=== PATIENT | male | born 1945 | race Caucasian/White ===

== ENCOUNTER 2019-02-26 13:43 | Emergency (ER) | payer OTHER ==
[~2019-02-26] VITALS: Ht 166 cm; Wt 77.0 kg
[2019-02-26 14:39] LABS: BASOPHILS % (AUTO) 0 % (0-10); EOSINOPHILS # (AUTO) 0.2 10^3/uL (0.0-0.3); EOSINOPHILS % (AUTO) 2 % (0-10); HEMATOCRIT 43 % (40-54); HEMOGLOBIN 14.6 G/DL (13.3-17.7); LYMPHOCYTES # (AUTO) 1.7 X 10^3 (1.0-4.0); LYMPHOCYTES % (AUTO) 24 % (12-44); MEAN CORPUSCULAR HEMOGLOBIN 32 PG (25-34); MEAN CORPUSCULAR HGB CONC 34 G/DL (32-36); MEAN CORPUSCULAR VOLUME 93 FL (80-99); MEAN PLATELET VOLUME 9.8 FL (7.4-10.4); MONOCYTES # (AUTO) 0.6 X 10^3 (0.0-1.0); MONOCYTES % (AUTO) 9 % (0-12); NEUTROPHILS # (AUTO) 4.4 X 10^3 (1.8-7.8); NEUTROPHILS % (AUTO) 64 % (42-75); PLATELET COUNT 163 10^3/uL (130-400); RED CELL DISTRIBUTION WIDTH 13.2 % (10.0-14.5); WHITE BLOOD COUNT 6.9 10^3/uL (4.3-11.0)
[2019-02-26 14:42] LABS: BILIRUBIN,URINE 1+ (NEGATIVE); CLARITY,URINE CLEAR; COLOR,URINE YELLOW; GLUCOSE, URINE (UA) NEGATIVE (NEGATIVE); KETONES,URINE TRACE (NEGATIVE); LEUKOCYTE ESTERASE ,URINE NEGATIVE (NEGATIVE); NITRITE,URINE NEGATIVE (NEGATIVE); PH,URINE 5.5 (5-9); PROTEIN,URINE 1+ (NEGATIVE); RBC,URINE 0-2 /HPF; UROBILINOGEN,URINE 0.2 MG/DL (NORMAL)
[2019-02-26 14:43] LABS: CALCIUM OXALATE CRYSTALS,UR MODERATE /LPF; HYALINE CASTS, URINE >50 /LPF
[2019-02-26 15:13] LABS: POTASSIUM 3.9 MMOL/L (3.6-5.0)
[2019-02-26 15:14] LABS: ALBUMIN 3.7 GM/DL (3.2-4.5); BILIRUBIN,TOTAL 0.7 MG/DL (0.1-1.0); CALCIUM 9.8 MG/DL (8.5-10.1); CREATININE SERUM 1.41 MG/DL (0.60-1.30); TOTAL PROTEIN 6.5 GM/DL (6.4-8.2)
[2019-02-26] MEDS ORDERED: NS IV 1000 ML 1,000 ML IV SCH (17:00)
--- NOTE | 2019-02-26 17:12 | Diagnostic Imaging Report ---
CLINICAL INDICATION: Patient with episode of confusion and altered mental status x3 hours. No complaints at this time. EXAM: Axial CT scan of the brain performed without IV contrast. Auto Exposure Controls were utilized during the CT exam to meet ALARA standards for radiation dose reduction. COMPARISON: None. FINDINGS: There is no evidence of acute cerebral infarct, intracranial hemorrhage, or gross mass effect. The brain parenchymal volume appears appropriate for patient's age. There are multiple focal and patchy areas of low-attenuation white matter changes involving both cerebral hemispheres and in the periventricular regions which may be related to chronic small vessel ischemic disease and leukoaraiosis. There is normal pimentel-white matter distinction. There is no significant midline shift or herniation. There is no evidence of hydrocephalus. The basal cisterns are unremarkable. The skull, extracranial soft tissue, and orbits are unremarkable. The paranasal sinuses are unremarkable. Temporal bones show no significant abnormality. IMPRESSION: 1: There is no definite CT evidence of interval acute cerebral infarction, intracranial hemorrhage, or mass seen. Given the diffuse low attenuation changes throughout the brain parenchyma which can obscure more subtle findings, if there is clinical concern for acute cerebral infarction, MRI of the brain would better evaluate. 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 Dictated by: Dictated on workstation # [id number]
--- NOTE | 2019-02-26 18:01 | ED General ---
General Chief Complaint: Altered Mental Status Stated Complaint: ALTERED MENTAL STATUS Nursing Triage Note: Patient alert, oriented and ambulatory at arrival. stated that patient was talking gibberish at 1315. stated that this happened twice before. Once in August and another time was a long time ago. stated he was having issues filling out his personal information sheet for registration. Pt was alert, oriented x 4. Pt knew name, , day, year, president and last 4 of social security. Pt stated that he did have weird ear pain that started earlier, but does not hurt currently. BS was 115, IV started and urine collected. Nursing Sepsis Screen: No Definite Risk History of Present Illness Date Seen by Provider: Feb 26, 2019 Time Seen by Provider: 14:45 Initial Comments The patient was a 73-year-old white male brought to the emergency room by his family because of altered mental status. They reported him to be jumpy and confused. On arrival here he seemed to be more lively than that but was still vague about details. There was no history of loss of consciousness or motor skills. The patient's family related that about one year ago he had an episode that was similar with a urinary tract infection. Timing/Duration: 4-6 Hours Associated Systoms: Denies Symptoms Allergies and Home Medications Allergies Coded Allergies: No Known Drug Allergies (Unverified , 02/26/19) Patient Home Medication List Home Medication List Reviewed: Yes Review of Systems Review of Systems Constitutional: see HPI EENTM: no symptoms reported Respiratory: no symptoms reported Cardiovascular: no symptoms reported Gastrointestinal: no symptoms reported Genitourinary: no symptoms reported Musculoskeletal: no symptoms reported Skin: no symptoms reported Psychiatric/Neurological: No Symptoms Reported Hematologic/Lymphatic: No Symptoms Reported Immunological/Allergic: no symptoms reported Past Avdtpdw-Gyvzzi-Jijork Hx Patient Social History Alcohol Use: Denies Use Recreational Drug Use: No Smoking Status: Never a Smoker 2nd Hand Smoke Exposure: No Recent Foreign Travel: No Contact w/Someone Who Travel: No Recent Infectious Disease Expo: No Physical Abuse: No Sexual Abuse: No Mistreated: No Fear: No Physical Exam Vital Signs Vital Signs - First Documented 02/26/19 13:50 Temp 36.4 Pulse 73 Resp 16 B/P (MAP) 128/68 (88) Pulse Ox 96 O2 Delivery Room Air Capillary Refill : Less Than 3 Seconds Height, Weight, BMI Height: '" Weight: lbs. oz. kg; 27.00 BMI Method: General Appearance: No Apparent Distress, Other (he was pleasant but vague about date time and details.) Eyes: Bilateral Eye Normal Inspection HEENT: Normal ENT Inspection Neck: Normal Inspection Respiratory: Chest Non Tender, Lungs Clear, Normal Breath Sounds, No Accessory Muscle Use, No Respiratory Distress Cardiovascular: Regular Rate, Rhythm, No Edema, No Gallop, No JVD, No Murmur, Normal Peripheral Pulses Gastrointestinal: Normal Bowel Sounds, No Organomegaly, No Pulsatile Mass, Non Tender, Soft Back: Normal Inspection, No CVA Tenderness, No Vertebral Tenderness Extremity: Normal Capillary Refill, Normal Inspection, Normal Range of Motion, Non Tender, No Calf Tenderness, No Pedal Edema Neurologic/Psychiatric: Alert, No Motor/Sensory Deficits, Normal 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, 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 Norm as Tested Skin: Normal Color, Warm/Dry Lymphatic: No Adenopathy Progress/Results/Core Measures Suspected Sepsis Recent Fever Within 48 Hours: No Infection Criteria Present: None New/Unexplained Altered Menta: No Sepsis Screen: No Definite Risk SIRS Temperature: Pulse: 73 Respiratory Rate: 16 Laboratory Tests 02/26/19 14:05: White Blood Count 6.9 Blood Pressure 128 /68 Mean: 88 Laboratory Tests 02/26/19 14:05: Creatinine 1.41H, Platelet Count 163, Total Bilirubin 0.7 Results/Orders Lab Results Laboratory Tests Test 02/26/19 13:50 02/26/19 13:54 02/26/19 14:05 Range/Units Urine Color YELLOW Urine Clarity CLEAR Urine pH 5.5 5-9 Urine Specific [place] >1.030 1.016-1.022 Urine Protein 1+ H NEGATIVE Urine Glucose (UA) NEGATIVE NEGATIVE Urine Ketones TRACE H NEGATIVE Urine Nitrite NEGATIVE NEGATIVE Urine Bilirubin 1+ H NEGATIVE Urine Urobilinogen 0.2 NORMAL MG/DL Urine Leukocyte Esterase NEGATIVE NEGATIVE Urine RBC (Auto) TRACE H NEGATIVE Urine RBC 0-2 /HPF Urine WBC NONE /HPF Urine Crystals PRESENT H /LPF Urine Calcium Oxalate Crystals MODERATE H /LPF Urine Bacteria NONE /HPF Urine Casts PRESENT /LPF Urine Hyaline Casts >50 H /LPF Urine Mucus NEGATIVE /LPF Urine Culture Indicated NO Glucometer 115 H 70-110 MG/DL White Blood Count 6.9 4.3-11.0 10^3/uL Red Blood Count 4.59 4.35-5.85 10^6/uL Hemoglobin 14.6 13.3-17.7 G/DL Hematocrit 43 40-54 % Mean Corpuscular Volume 93 80-99 FL Mean Corpuscular Hemoglobin 32 25-34 PG Mean Corpuscular Hemoglobin Concent 34 32-36 G/DL Red Cell Distribution Width 13.2 10.0-14.5 % Platelet Count 163 130-400 10^3/uL Mean Platelet Volume 9.8 7.4-10.4 FL Neutrophils (%) (Auto) 64 42-75 % Lymphocytes (%) (Auto) 24 12-44 % Monocytes (%) (Auto) 9 0-12 % Eosinophils (%) (Auto) 2 0-10 % Basophils (%) (Auto) 0 0-10 % Neutrophils # (Auto) 4.4 1.8-7.8 X 10^3 Lymphocytes # (Auto) 1.7 1.0-4.0 X 10^3 Monocytes # (Auto) 0.6 0.0-1.0 X 10^3 Eosinophils # (Auto) 0.2 0.0-0.3 10^3/uL Basophils # (Auto) 0.0 0.0-0.1 10^3/uL Sodium Level 138 135-145 MMOL/L Potassium Level 3.9 3.6-5.0 MMOL/L Chloride Level 101 98-107 MMOL/L Carbon Dioxide Level 24 21-32 MMOL/L Anion Gap 13 5-14 MMOL/L Blood Urea Nitrogen 18 7-18 MG/DL Creatinine 1.41 H 0.60-1.30 MG/DL Estimat Glomerular Filtration Rate 49 BUN/Creatinine Ratio 13 Glucose Level 118 H 70-105 MG/DL Calcium Level 9.8 8.5-10.1 MG/DL Corrected Calcium 10.0 8.5-10.1 MG/DL Total Bilirubin 0.7 0.1-1.0 MG/DL Aspartate Amino Transf (AST/SGOT) 21 5-34 U/L Alanine Aminotransferase (ALT/SGPT) 21 0-55 U/L Alkaline Phosphatase 81 40-136 U/L Total Protein 6.5 6.4-8.2 GM/DL Albumin 3.7 3.2-4.5 GM/DL My Orders Orders - FRANCISCO MULLEN MD Cbc With Automated Diff (02/26/19 14:09) Comprehensive Metabolic Panel (02/26/19 14:09) Ua Culture If Indicated (02/26/19 14:09) Ct Head Wo (02/26/19 16:54) Ns Iv 1000 Ml (Sodium Chloride 0.9%) (02/26/19 17:00) Vital Signs/I&O 02/26/19 13:50 Temp 36.4 Pulse 73 Resp 16 B/P (MAP) 128/68 (88) Pulse Ox 96 O2 Delivery Room Air Capillary Refill : Less Than 3 Seconds Blood Pressure Mean: 88 Departure Communication (Admissions) The patient appears to be reasonably alert. He wishes to go home. CT scan shows only changes which are nonacute and not unusual for age. Impression Primary Impression: transient altered mental status Disposition: 01 HOME, SELF-CARE Condition: Stable/Unchanged Departure-Patient Inst. Decision time for Depature: 18:23 Referrals: PAUL BOLES MD (PCP/Family) Primary Care Physician Add. Discharge Instructions: All discharge instructions reviewed with patient and/or family. Voiced understanding. Increase your fluid intake. FRANCISCO MULLEN MD Feb 26, 2019 18:01
[2019-02-26 19:31] VITALS: BP 159/84
== END 2019-02-26 19:31 | disposition home or self-care (01) ==
LOC: ER FS 13:45
DX: R40.4 Transient alteration of awareness (principal)
CPT/HCPCS: 36415; 70450; 80053; 81000; 82962; 85025; 96360

== ENCOUNTER → 2020-02-19 | Outpatient (CLI) | payer MEDICARE, OTHER ==
[~2020-02-19] VITALS: Ht 170 cm; Wt 76.0 kg
[~2020-02-19] MED LIST: ALPR0.254 PO; ASPI-1238 PO; ATOR40TA70 PO; CATHETER FLUSH 10 ML SYR IV PRN; CLOP75TA69 PO; FLUT16SP22 NSEACH; ISOS30TA3 PO; LISI-552 PO; LORA10TA7 PO; MTP100TCR PO; OMEP40CA27 PO; RANO500T6 PO; REGADENOSON 0.4 MG/5 ML SYR (LEXISCAN) IV ONE
[2020-02-23 09:18] VITALS: BP 168/70
--- NOTE | 2020-02-23 09:18 | Cardiology Stress Test Report ---
Stress Test Report Type of NM Stress Test: Test Type: LEXISCAN 0.4MG/5ML Date of Procedure/Referring: Date of Procedure: Feb 19, 2020 PCP Bong Orozco MD Admitting Physician Jarrod Valenzuela MD Indications: Precordial pain. Baseline Heart Rate: 61 Baseline Blood Pressure: Blood Pressure Systolic: 168 Blood Pressure Diastolic: 70 Baseline EKG: Baseline EKG: sinus rhythm Summary & Conclusion: Summary: The patient was brought to the stress lab after informed consent was taken. Stress test was performed according to the Lexiscan protocol. 0.4 mg of IV Lexiscan was given. Low-grade exercise was performed. Baseline EKG showed sinus rhythm at 61 bpm and blood pressure 168/90 mmHg. Maximum heart rate of 86 bpm and blood pressure 151/96 mmHg. Patient complained of chest pain which resolved at the end. Multiple PVCs. ST depressions noted in V2/V4. 10.76 mCi of Myoview were given for rest imaging and 29.5 mCi of Myoview given for stress imaging. Transient ischemic dilatation score 1.10, EF 48 percent. Lateral hypokinesis. Fixed moderate size lateral defect with mild thomas-defect reversibility. SSS 13, SRS 13, SDS 0. Conclusion: Pharmacological stress test was positive for ischemia. Mild LV systolic dysfunction. Lateral hypokinesis. Lateral infarct with possible thomas-infarct ischemia. Clinical correlation is recommended. Bong OROZCO MD Feb 23, 2020 09:17
== END ==
LOC: CARD 07:34
PROVIDERS: ATTEND Internal Medicine Interventional Cardiology
DX: I25.9 Chronic ischemic heart disease, unspecified (principal); I51.89 Other ill-defined heart diseases; I25.2 Old myocardial infarction
CPT/HCPCS: 78452; 93017; A9502

== ENCOUNTER 2020-02-20 09:00 | Outpatient (RCR) | payer MEDICARE, OTHER ==
[2020-02-26] MEDS ORDERED: LIDOCAINE 1% INJ 20 ML 20 ML VIAL ONE (06:57)
[2020-02-26] MEDS ORDERED: HEParin (CATH LAB) 2,000 ML IV ONE (06:57)
[2020-02-26] MEDS ORDERED: NS IV 1000 ML 1,000 ML ONE (06:57)
[2020-02-26] MEDS ORDERED: OMEP40CA27 PO (07:47)
[2020-02-26] MEDS ORDERED: RANO500T6 PO (07:47)
[2020-02-26] MEDS ORDERED: ASPI-1238 PO (07:47)
[2020-02-26] MEDS ORDERED: LORA10TA7 PO (07:47)
[2020-02-26] MEDS ORDERED: ATOR40TA70 PO (07:47)
[2020-02-26] MEDS ORDERED: LISI-552 PO (07:47)
[2020-02-26] MEDS ORDERED: ALPR.25T PO (07:47)
[2020-02-26] MEDS ORDERED: ISOS30TA3 PO (07:47)
[2020-02-26] MEDS ORDERED: FLUT16SP22 NSEACH (07:47)
[2020-02-26] MEDS ORDERED: CLOP75TA69 PO (07:47)
[2020-02-26] MEDS ORDERED: MTP100TCR PO (07:47)
== END 2020-05-20 | disposition home or self-care (01) ==
LOC: CARD 09:00
PROVIDERS: ATTEND Internal Medicine Interventional Cardiology
DX: I35.1 Nonrheumatic aortic (valve) insufficiency (principal); I51.7 Cardiomegaly; I25.10 Atherosclerotic heart disease of native coronary artery without angina pectoris; I65.23 Occlusion and stenosis of bilateral carotid arteries
CPT/HCPCS: 93306

== ENCOUNTER 2020-02-26 06:59 | Day surgery (SDC) | payer MEDICARE ==
[2020-02-26] VITALS (12 sets, daily range): BP systolic 115–191; BP diastolic 64–93
[~2020-02-26] VITALS: Ht 170 cm; Wt 73.0 kg
[2020-02-26] MEDS ORDERED: NS IV 1000 ML 1,000 ML IV SCH ×2 (07:15→10:12)
[2020-02-26 07:27] LABS: HEMOGLOBIN 16.1 G/DL (13.3-17.7); MEAN PLATELET VOLUME 9.9 FL (7.4-10.4); WHITE BLOOD COUNT 7.5 10^3/uL (4.3-11.0)
[2020-02-26 07:45] LABS: PROTHROMBIN TIME PATIENT 13.9 SEC (12.2-14.7)
[2020-02-26] MEDS ORDERED: CLOP75TA69 PO (07:47)
[2020-02-26] MEDS ORDERED: ISOS30TA3 PO (07:47)
[2020-02-26] MEDS ORDERED: ALPR0.254 PO (07:47)
[2020-02-26] MEDS ORDERED: OMEP40CA27 PO (07:47)
[2020-02-26] MEDS ORDERED: LORA10TA7 PO (07:47)
[2020-02-26] MEDS ORDERED: LISI-552 PO (07:47)
[2020-02-26] MEDS ORDERED: ASPI-1238 PO (07:47)
[2020-02-26] MEDS ORDERED: FLUT16SP22 NSEACH (07:47)
[2020-02-26] MEDS ORDERED: ATOR40TA70 PO (07:47)
[2020-02-26] MEDS ORDERED: MTP100TCR PO (07:47)
[2020-02-26] MEDS ORDERED: RANO500T6 PO (07:47)
[2020-02-26 07:50] LABS: BILIRUBIN,TOTAL 0.8 MG/DL (0.1-1.0); CALCIUM 9.6 MG/DL (8.5-10.1); CREATININE SERUM 1.3 MG/DL (0.60-1.30); POTASSIUM 3.8 MMOL/L (3.6-5.0); TOTAL PROTEIN 7.1 GM/DL (6.4-8.2)
[2020-02-26] MEDS ORDERED: MIDAZOLAM 5 MG/5 ML (VERSED) VIAL ONE (08:30)
[2020-02-26] MEDS ORDERED: fentaNYL INJECTION 100 MCG/2 ML AMP ONE (08:31)
[2020-02-26] MEDS ORDERED: ADENOSINE 3 MG/1 ML (ADENOSCAN) 30ML VIAL IV ONE (09:26)
[2020-02-26] MEDS ORDERED: HEParin 1000 UNIT/ML (10ML VIAL) FOR BOLUS ONE (09:26)
[2020-02-26] MEDS ORDERED: hydrALAZINE (APESOLINE) 20 MG/ML VIAL ONE (09:55)
--- NOTE | 2020-02-26 10:01 | Cardiac Procedure Note-CS/ASA ---
Pre-Procedure Note Pre-Op Procedure Note H&P Reviewed The H&P was reviewed, patient examined and no changes noted. Date H&P Reviewed: Feb 26, 2020 Time H&P Reviewed: 08:45 Conscious Sedation Pre-Proced Time 08:45 ASA Score 3 For ASA 3 and 4: Consider anesthesia and medical clearance. Also, for patients with a history of failed moderate sedation consider anesthesia. Airway Lungs Heart ASA score ASA 1: a normal healthy patient ASA 2: a patient with a mild systemic disease (mid diabetes, controlled hypertension, obesity ASA 3: a patient with a severe systemic disease that limits activity (angina, COPD, prior Myocardial infarction) ASA 4: a patient with an incapacitating disease that is a constant threat to life (CHF, renal failure) ASA 5: a moribund patient not expected to survive 24 hrs. (ruptured aneurysm) ASA 6: a declared brain- patient whose organs are being harvested. For emergent operations, add the letter E after the classification Mallampati Classification Grade 1 Sedation Plan Analgesia, Amnesia, Plan communicated to team members, Discussed options with patient/fam, Discussed risks with patient/fam The patient is an appropriate candidate to undergo the planned procedure, sedation, and anesthesia. The patient immediately re-assessed prior to indication. Bong BURROUGHS MD Feb 26, 2020 10:01
--- NOTE | 2020-02-26 10:12 | Coronary Angiography Report ---
Coronary Angiography Report DATE OF PROCEDURE: 02/26/20 INDICATION: chest pain, abnormal nuclear stress test, History of CAD/CABG. PREOPERATIVE DIAGNOSIS: chest pain, abnormal nuclear stress test, History of CAD/CABG. POSTOPERATIVE DIAGNOSIS: Moderate CAD. No PCI recommended. HISTORY: 74-year-old gentleman with CAD/CABG, with precordial pain and abnormal nuclear stress test.Therefore, the patient was scheduled for coronary angiography. PROCEDURES PERFORMED: 1.Coronary angiography. 2.Left heart catheterization. 3. ESTES angiography 4. SVG angiography 5. Aortic arch angiogram: Medical necessity: to look for saphenous vein grafts. 6. FFR to proximal LAD. COMPLICATIONS: None. SPECIMENS: None. ESTIMATED BLOOD LOSS: 10 mL ANESTHESIA: Conscious sedation ANTICOAGULATION: IV heparin CONTRAST: 146 mL. FLUOROSCOPY: 8.5 minutes. FLOUROSCOPY DOSE:885 mgy. PROCEDURE DETAILS: The patient is a 74 male and was brought to the mini lab operator after informed consent was taken. All the risks and complications were explained in detail; this included the risk of bleeding, vascular damage, stroke, ID and even . The patient was draped and prepped in the usual sterile fashion. Access was gained in the right femoral artery with a 6 [place] sheath. Coronary angiography and left heart catheterization was performed with JR4 and JL4 catheter. Saphenous vein graft and ESTES angiography was done with the JR4 catheter. Aortic arch angiogram was performed with a pigtail catheter. FINDINGS: 1.Left main: patent. 2.LAD: moderate proximal disease. Stenosis severity 50 percent. Mild diffuse distal disease. Occluded ESTES to the LAD. 3.Left circumflex artery: patent OM1. Small vessel. Likely occluded AV groove artery after takeoff of OM1. 4.RCA: moderate to severe ostial RCA stenosis. Heavily calcified. PDA/PL supplied by a patent jump graft. 5.Left heart catheterization: LV pressure 187/12 mmHg. LVEDP 27 mmHg. Aortic pressure 182/83 mmHg. Normal LV function. No gradient across the aortic valve. 6. ESTES angiography: Occluded ESTES. 7. SVG to RCA: SVG jump graft to the PL and PDA. Patent. 8. Another saphenous vein graft which is occluded. 9. Aortic arch angiogram: Only one patent saphenous vein graft noted. no aneurysm or dissection. Patent proximal segments of the great arteries. Recommendations: FFR to the proximal LAD is recommended. FFR details: We used the same JL4 diagnostic catheter. IV heparin 5000 units. We crossed the lesion with an FFR wire. Baseline FFR 0.93. Adenosine was given at 140 g per KG per minute. Lowest FFR 0.86 which is acceptable therefore PCI was deferred. The wire was taken out and there was no vascular complication on post-angiogram. Minx closure to the RFA. Patient tolerated the procedure well and did not have any complication. The patient left the catheter lab with stable hemodynamics. CONCLUSIONS: moderate CAD. Patent jump SVG to the RPDA and RPL. Occluded ESTES. Another occluded saphenous vein graft. Moderate proximal LAD with acceptable FFR. No PCI is indicated. Continue aggressive secondary prevention. Darshan Orozco MD, FACP, FACC, [facility] Interventional Cardiology Bong OROZCO MD Feb 26, 2020 10:12
--- NOTE | 2020-02-26 10:14 | Discharge Inst-Post CATH ---
Discharge Inst-CATH/EP Problems Reviewed?: Yes Final Diagnosis Moderate CAD Post Cardiac Cath/EP D/C Inst Follow Up/Plan Follow up with Dr Orozco on previously scheduled appointment. <b>CARDIAC CATH/EP PROCEDURE DISCHARGE INSTRUCTIONS</b> ACTIVITY * Go Home directly and rest. * Limit activity of the leg (or wrist if it was used) for 7 days including aerobics, swimming, jogging, bicycling, etc. * Restrict stair-climbing for 7 days if possible, if not, climb up with your non-cath leg, then bring together on the same step. * Avoid lifting, pushing, pulling or excessive movement of the affected extremity for 7 days. * Customary sexual activity may be resumed after 2 days-use caution not to use a position that strains or causes pain to the affected extremity. * No driving for 24 hours. * NO SMOKING. * Avoid straining for bowel movements for 7 days. * Gentle walking on level ground is allowed. * Returning to work will depend on the type of procedure and the results. Your doctor will discuss this with you. CALL YOUR DOCTOR FOR ANY OF THE FOLLOWING: *If bleeding from the puncture site occurs- Apply gentle pressure to site with clean cloth and call your doctor or EMS. * If a knot or lump forms under the skin, increases in size, or causes pain. * If bruising appears to be worsening or moving further down your leg instead of disappearing. * Temperature above 101 F. CARE OF YOUR GROIN INCISION; * Bruising or purple discoloration of the skin near the puncture site is common. * You may shower only, no bathtub bathing for 5 days. Be careful to avoid slipping as your leg may feel stiff. * If a closure device was used on your femoral artery, please see the attached guide regarding care of the device and your leg. * Leave dressing on FOR 24 hours. CARE OF YOUR WRIST INCISION; * Bruising or purple discoloration of the skin near the puncture site is common. * You may shower. * DO NOT submerge wrist. * Leave dressing on FOR 24 hours. Bong OROZCO MD Feb 26, 2020 10:14
[2020-02-26] MEDS ORDERED: PATIENT MAY USE OWN MEDS, ALL PO SCH (10:15)
--- NOTE | 2020-02-26 10:15 | Cardiology Discharge Summary ---
Diagnosis/Chief Complaint Date of Admission 02/26/2020 Date of Discharge 02/26/2020 Admission Diagnosis chest pain, CAD, abnormal nuclear stress test Final/Discharge Diagnosis moderate CAD Chief Complaint/HPI Chief Complaint/HPI 74-year-old gentleman with CAD/CABG. Chest pain, abnormal nuclear stress test. Discharge Summary Procedures moderate CAD. Patent jump SVG to the RPDA and RPL. Occluded ESTES. Another occluded saphenous vein graft. Moderate proximal LAD with acceptable FFR. No PCI is indicated. Discharge Physical Examination normal cardiovascular examination. Hospital Course Was the Problem List Reviewed?: Yes unremarkable. Pending Labs Laboratory Tests 02/26/20 07:21: White Blood Count 7.5, Red Blood Count 4.96, Hemoglobin 16.1, Hematocrit 46, Mean Corpuscular Volume 93, Mean Corpuscular Hemoglobin 33, Mean Corpuscular Hemoglobin Concent 35, Red Cell Distribution Width 14.0, Platelet Count 162, Mean Platelet Volume 9.9, Prothrombin Time 13.9, INR Comment 1.0, Activated Partial Thromboplast Time 34, Sodium Level 139, Potassium Level 3.8, Chloride Level 105, Carbon Dioxide Level 24, Anion Gap 10, Blood Urea Nitrogen 20, Creatinine 1.30, Estimat Glomerular Filtration Rate 54, BUN/Creatinine Ratio 15, Glucose Level 99, Calcium Level 9.6, Corrected Calcium 9.6, Total Bilirubin 0.8, Aspartate Amino Transf (AST/SGOT) 22, Alanine Aminotransferase (ALT/SGPT) 18, Alkaline Phosphatase 73, Total Protein 7.1, Albumin 4.0 Discussion & Recommendations Discussion discussed with the patient and family. Continue current medical therapy. Follow up appt.: follow-up with Dr. Orozco Dicharge Diet: Cardiac Diet Activity as Tolerated: Yes Home Medications Reviewed patient Home Medication Reconciliation performed by pharmacy medication reconciliations actuarial technician and/or nursing. Patients Allergies have been reviewed. Discharge Home Medications: Reviewed and agree with Discharge Medication list on patient's Discharge Instruction sheet Condition at discharge stable. Instructions to patient/family Follow up with Dr Orozco on previously scheduled appointment. Bong OROZCO MD Feb 26, 2020 10:15
== END 2020-02-26 14:55 | disposition home or self-care (01) ==
LOC: CATH 06:59 → SDC 10:10 → CATH 14:55
PROVIDERS: ATTEND Internal Medicine Interventional Cardiology
DX: I25.10 Atherosclerotic heart disease of native coronary artery without angina pectoris (principal); R94.39 Abnormal result of other cardiovascular function study; I65.23 Occlusion and stenosis of bilateral carotid arteries; Z79.82 Long term (current) use of aspirin; Z79.899 Other long term (current) drug therapy; Z86.73 Personal history of transient ischemic attack (TIA), and cerebral infarction without residual deficits
CPT/HCPCS: 36221; 80053; 85027; 85610; 85730; 87081; 93459; 93571; C1760; C1769; C1894; 36415

== ENCOUNTER → 2020-11-01 | Outpatient (CLI) | payer MEDICARE ==
[~2020-11-01] MED LIST changes: +ALPR.25T PO; -ALPR0.254 PO; +HOLD METFORMIN - RECEIVED CONTRAST 20 ML VIAL IV SCH; +IOHEXOL 350 MG/ML 100 ML (OMNIPAQUE 350) VIAL IV ONE; -ISOS30TA3 PO; +ISOS30TA82 PO; -LISI-552 PO; +LISI20TA26 PO; +NS 100 ML (IVPB) BAG IV ONE; -REGADENOSON 0.4 MG/5 ML SYR (LEXISCAN) IV ONE
--- NOTE | 2020-11-01 16:25 | Diagnostic Imaging Report ---
PROCEDURE: CT head with and without contrast. TECHNIQUE: Multiple contiguous axial images were obtained through the brain before and after the administration of intravenous contrast. Auto Exposure Controls were utilized during the CT exam to meet ALARA standards for radiation dose reduction. INDICATION: Syncopal episode three weeks ago. COMPARISON: 02/26/2019. FINDINGS: No large acute territorial ischemia, mass, or hemorrhage. No midline shift or mass effect. No abnormal enhancement. Decreased attenuation is seen in the periventricular and subcortical white matter. The ventricles and cortical sulci are age appropriate. The basilar cisterns are patent and unremarkable. The calvarium is intact. The visualized paranasal sinuses are clear. IMPRESSION: 1. No large acute territorial ischemia, mass, or hemorrhage. No abnormal enhancement. 2. Chronic microvascular disease. Dictated by: Dictated on workstation # [id number]
== END ==
LOC: RAD 15:47
PROVIDERS: ATTEND Physician Assistant
DX: I67.82 Cerebral ischemia (principal); R55 Syncope and collapse; M54.16 Radiculopathy, lumbar region; I25.10 Atherosclerotic heart disease of native coronary artery without angina pectoris; W19.XXXA Unspecified fall, initial encounter
CPT/HCPCS: 70470

== ENCOUNTER → 2021-01-17 | Outpatient (CLI) | payer MEDICARE ==
[~2021-01-17] MED LIST changes: -CATHETER FLUSH 10 ML SYR IV PRN; -HOLD METFORMIN - RECEIVED CONTRAST 20 ML VIAL IV SCH; -IOHEXOL 350 MG/ML 100 ML (OMNIPAQUE 350) VIAL IV ONE; -NS 100 ML (IVPB) BAG IV ONE; -OMEP40CA27 PO; +OMEP40CA6 PO
--- NOTE | 2021-01-17 12:37 | Diagnostic Imaging Report ---
PROCEDURE: MRI lumbar spine. TECHNIQUE: Multiplanar, multisequence MRI of the lumbar spine was performed without contrast. INDICATION: Low back pain and falls. No priors. There is disc obliteration and endplate effusion at the L3-L4 level. The L3-L4 fusion mass shows grade 1 anterolisthesis with respect to L5, the posterior cortices are off about 8 mm. There is slight retrolisthesis of L2 with respect to the L3-L4 fusion mass, this is off a grade 1 about 5 mm. Remaining levels are aligned normally. There is no acute appearing marrow signal pathology aside from some degenerative Modic type I changes across the L2-L3 as well as the T10-T11 endplates. The conus appeared unremarkable at the L1 level. There is dispersal of the nerves of the cauda equina. There is no paravertebral mass, hemorrhage or fluid collection. T12-L1: Mild disc desiccation and stature loss but no substantial stenosis. L1-L2: There is disc desiccation with no focal disc herniation, the canal, foraminal and recess is patent. L2-L3: There is severe spondylosis with Modic type I changes. There is disc bulge and endplate osteophytes. There is mild thickening of ligamenta flava. The findings result in a mild to moderate magnitude of canal stenosis with moderate left and [id number] right foraminal narrowing. L2-L3: This facet arthrosis and endplate osteophytes resulting in mild canal stenosis. There is moderate left and [id number] right bony foraminal stenoses. L4-L5: There is thickened ligamenta flava facet arthrosis, disc bulge and endplate osteophytes the findings result in a very severe degree of central canal stenosis. There is moderate left and severe right neural foraminal narrowing the severe stenosis of the right lateral recess. L5-S1: Bulky hypertrophic facet arthrosis is present with disc desiccation bulge and endplate osteophytes with moderate canal stenosis is moderate to severe right and moderate to severe left foraminal stenosis. IMPRESSION: 1. 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 2. Multifactorial degenerative change results in multiple levels of substantial degrees of spinal canal and neural foraminal and lateral recess stenoses detailed level by level above. Dictated by: Dictated on workstation # [id number]
== END ==
LOC: RAD 10:15
PROVIDERS: ATTEND Physician Assistant
DX: M47.26 Other spondylosis with radiculopathy, lumbar region (principal); M47.817 Spondylosis without myelopathy or radiculopathy, lumbosacral region; M51.16 Intervertebral disc disorders with radiculopathy, lumbar region; M51.27 Other intervertebral disc displacement, lumbosacral region; M51.37 Other intervertebral disc degeneration, lumbosacral region; M51.35 Other intervertebral disc degeneration, thoracolumbar region; M48.061 Spinal stenosis, lumbar region without neurogenic claudication; M48.07 Spinal stenosis, lumbosacral region; M43.16 Spondylolisthesis, lumbar region; M43.26 Fusion of spine, lumbar region; M25.78 Osteophyte, vertebrae
CPT/HCPCS: 72148

== ENCOUNTER 2021-02-06 12:13 | Observation (INO) | payer MEDICARE ==
[~2021-02-06] VITALS: Ht 170 cm; Wt 77.0 kg
--- NOTE | 2021-02-06 12:45 | ED Syncope ---
General Chief Complaint: Dizziness/Syncope Stated Complaint: SYNCOPAL EPISODE Nursing Triage Note: ARRIVED VIA EMS FROM HOME AFTER X2 SYNCOPLE EPISODES. DENIES HITTING HIS HEAD. Source of Information: Patient Exam Limitations: No Limitations History of Present Illness Date Seen by Provider: Feb 06, 2021 Time Seen by Provider: 12:30 Initial Comments Patient is a 75-year-old male who presents to the emergency department today after a syncopal episode at [employer] playing the paper again. Patient states that he was sitting playing and all of a sudden felt lightheaded and his legs quit working. His family member is at the bedside and states that he was unconscious for about a minute. Patient states that he had a little bit of back pain prior to the episode. No chest pain, shortness of breath, nausea, sweating. He had a similar episode several months ago and did not seek medical care afterwards. Patient is Covid vaccinated, no Covid concerns currently. No recent illnesses such as fevers chills cough or congestion. No headache. No GI or complaints. He is status post 5 vessel bypass in 2009 with a subsequent stent in 2012. He is chronically anticoagulated on Eliquis. 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 All other review of systems reviewed and negative except as stated. Location Injury Occurred: [facility] Timing/Prior Episodes: Recent History Symptoms Prior to Episode: Lightheadedness, Other (a little back pain) Precipitating Factors: Sitting Current Symptoms: Back to Normal (no pain) Allergies and Home Medications Allergies Coded Allergies: No Known Drug Allergies (Unverified , 02/26/19) Home Medications ALPRAZolam 0.25 Mg Tablet, 0.25 MG PO TID, (Reported) Aspirin Unknown Strength Tablet.dr, 81 MG PO DAILY, (Reported) Atorvastatin Calcium 40 Mg Tablet, 40 MG PO DAILY, (Reported) Clopidogrel Bisulfate 75 Mg Tablet, 75 MG PO DAILY, (Reported) Fluticasone Propionate 16 Gm [place].susp, 16 GM NSEACH PRN, (Reported) Isosorbide Mononitrate 30 Mg Tab.er.24h, 30 MG PO DAILY, (Reported) Lisinopril 20 Mg Tablet, 20 MG PO DAILY, (Reported) Loratadine 10 Mg Tablet, 10 MG PO DAILY, (Reported) Metoprolol Succinate 100 Mg Tab.er.24h, 100 MG PO DAILY, (Reported) Omeprazole 40 Mg Capsule.dr, 40 MG PO DAILY, (Reported) Ranolazine 500 Mg Tab.er.12h, 500 MG PO BID, (Reported) Patient Home Medication List Home Medication List Reviewed: Yes Review of Systems Constitutional: no symptoms reported, see HPI EENTM: no symptoms reported Respiratory: no symptoms reported Cardiovascular: no symptoms reported Gastrointestinal: no symptoms reported Genitourinary: no symptoms reported Musculoskeletal: no symptoms reported Skin: no symptoms reported Psychiatric/Neurological: No Symptoms Reported All Other Systems Reviewed Negative Unless Noted: Yes Past Axwaspd-Ypqtxt-Eooisk Hx Patient Social History Tobacco Use?: No Substance use?: No Immunizations Up To Date Tetanus Booster (TDap): Unknown Second COVID19 Vaccination Randy: 08/29 - MODERNA Past Medical History CABG, Coronary Stent Respiratory: No Currently Using CPAP: No Currently Using BIPAP: No Coronary Artery Disease Neurological: No Genitourinary: No Gastrointestinal: No Cancer: No Physical Exam Vital Signs Vital Signs - First Documented 02/06/21 12:13 Temp 36.7 Pulse 48 Resp 16 B/P (MAP) 76/54 (61) Pulse Ox 96 O2 Delivery Room Air Capillary Refill : Less Than 3 Seconds Height, Weight, BMI Height: '" Weight: lbs. oz. 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 Norm as Tested Cranial Nerves: Normal Hearing, Normal Speech, PERRL Motor/Sensory: No Motor Deficit, No Sensory Deficit Skin: Normal Color, Warm/Dry Progress/Results/Core Measures Results/Orders Lab Results Laboratory Tests Test 02/06/21 12:20 Range/Units White Blood Count 9.6 4.3-11.0 10^3/uL Red Blood Count 4.28 L 4.30-5.52 10^6/uL Hemoglobin 14.0 13.3-17.7 g/dL Hematocrit 42 40-54 % Mean Corpuscular Volume 97 80-99 fL Mean Corpuscular Hemoglobin 33 25-34 pg Mean Corpuscular Hemoglobin Concent 34 32-36 g/dL Red Cell Distribution Width 14.2 10.0-14.5 % Platelet Count 161 130-400 10^3/uL Mean Platelet Volume 9.8 9.0-12.2 fL Immature Granulocyte % (Auto) 0 % Neutrophils (%) (Auto) 79 H 42-75 % Lymphocytes (%) (Auto) 12 12-44 % Monocytes (%) (Auto) 6 0-12 % Eosinophils (%) (Auto) 2 0-10 % Basophils (%) (Auto) 0 0-10 % Neutrophils # (Auto) 7.6 1.8-7.8 10^3/uL Lymphocytes # (Auto) 1.2 1.0-4.0 10^3/uL Monocytes # (Auto) 0.6 0.0-1.0 10^3/uL Eosinophils # (Auto) 0.2 0.0-0.3 10^3/uL Basophils # (Auto) 0.0 0.0-0.1 10^3/uL Immature Granulocyte # (Auto) 0.0 0.0-0.1 10^3/uL Sodium Level 136 135-145 MMOL/L Potassium Level 4.8 3.6-5.0 MMOL/L Chloride Level 107 98-107 MMOL/L Carbon Dioxide Level 22 21-32 MMOL/L Anion Gap 7 5-14 MMOL/L Blood Urea Nitrogen 20 H 7-18 MG/DL Creatinine 1.89 H 0.60-1.30 MG/DL Estimat Glomerular Filtration Rate 35 BUN/Creatinine Ratio 11 Glucose Level 112 H 70-105 MG/DL Calcium Level 9.6 8.5-10.1 MG/DL Troponin I < 0.028 <0.028 NG/ML My Orders Orders - AZUCENA MOELLER MD Ed Iv/Invasive Line Start (02/06/21 12:40) Cbc With Automated Diff (02/06/21 12:40) Basic Metabolic Panel (02/06/21 12:40) Troponin I (02/06/21 12:40) Chest 1 View, Ap/Pa Only (02/06/21 12:40) Ekg Tracing (02/06/21 12:40) Vital Signs/I&O 02/06/21 12:13 Temp 36.7 Pulse 48 Resp 16 B/P (MAP) 76/54 (61) Pulse Ox 96 O2 Delivery Room Air Blood Pressure Mean: 61 Progress Progress Note : Time: 13:29 Progress Note Patient looks clinically very well, recheck vital signs show a blood pressure of 81/60 heart rate 46-48. Discussed the case with Dr. Hogan and Dr. Kuhn. We will continue fluids. Dr. Kuhn states since in a sinus rhythm we will hold Eliquis as well as metoprolol and lisinopril. Will put patient on cardiac stepdown with fluids. Initial ECG Impression Date: Feb 06, 2021 Initial ECG Impression Time: 12:23 Initial ECG Rate: 50 Initial ECG Rhythm: S.Artur Initial ECG Intervals MO 185 QRS 149 QTc 445 Comment Right bundle branch block Diagnostic Imaging Diagonstic Imaging: Xray Plain Films/CT/US/NM/MRI: chest Comments [facility] [place] NAME: AMBAR MUSA [facility] REC#: [id number] PT STATUS: REG ER : 1945 PHYSICIAN: AZUCENA MOELLER MD ADMIT DATE: 02/06/21/ER Draft Date of Exam:02/06/21 CHEST 1 VIEW, AP/PA ONLY EXAM: Portable erect AP chest at 12:57 PM INDICATION: Syncope COMPARISON: There are no prior studies available for comparison. FINDINGS: The heart size is at the upper limits of normal. There are sternotomy wires and surgical clips evident. The lungs are clear. There is no sign of failure, pneumonia or of pleural effusion. The mediastinum is not widened. The osseous structures are intact. IMPRESSION: There is borderline cardiomegaly and evidence of prior cardiac surgery but there is no sign of an acute cardiopulmonary abnormality. Dictated on workstation # [id number] Dict: 02/06/21 1300 Trans: 02/06/21 1309 [facility] [id number] Interpreted by: ISIDRO WILLETT MD Electronically signed by: Departure Communication (Admissions) Time/Spoke to Admitting Phy: 13:[address] Hogan; ok for cardiac stepdown Time/Spoke to Consulting Phy: 13:25 hold lisinopril, metoprolol and eliquis Impression Primary Impression: Syncope Qualified Codes: R55 - Syncope and collapse Additional Impressions: Bradycardia Hypotension Qualified Codes: I95.2 - Hypotension due to drugs Disposition: ADMITTED INPATIENT Condition: Stable Admissions Decision to Admit Reason: Admit from ER (General) Decision to Admit/Date: Feb 06, 2021 Time/Decision to Admit Time: 13:27 Departure-Patient Inst. Referrals: NEVA PERSAUD MD (PCP/Family) Primary Care Physician AZUCENA MOELLER MD Feb 06, 2021 12:45
[2021-02-06 12:46] LABS: BASOPHILS % (AUTO) 0 % (0-10); EOSINOPHILS # (AUTO) 0.2 10^3/uL (0.0-0.3); EOSINOPHILS % (AUTO) 2 % (0-10); HEMATOCRIT 42 % (40-54); LYMPHOCYTES # (AUTO) 1.2 10^3/uL (1.0-4.0); LYMPHOCYTES % (AUTO) 12 % (12-44); MEAN CORPUSCULAR HEMOGLOBIN 33 pg (25-34); MEAN CORPUSCULAR HGB CONC 34 g/dL (32-36); MEAN CORPUSCULAR VOLUME 97 fL (80-99); MEAN PLATELET VOLUME 9.8 fL (9.0-12.2); MONOCYTES # (AUTO) 0.6 10^3/uL (0.0-1.0); MONOCYTES % (AUTO) 6 % (0-12); NEUTROPHILS # (AUTO) 7.6 10^3/uL (1.8-7.8); NEUTROPHILS % (AUTO) 79 % (42-75); PLATELET COUNT 161 10^3/uL (130-400); WHITE BLOOD COUNT 9.6 10^3/uL (4.3-11.0)
[2021-02-06 12:49] LABS: CHLORIDE 107 MMOL/L (98-107); POTASSIUM 4.8 MMOL/L (3.6-5.0); SODIUM 136 MMOL/L (135-145)
[2021-02-06 12:50] LABS: CALCIUM 9.6 MG/DL (8.5-10.1)
[2021-02-06 12:51] LABS: GLUCOSE 112 MG/DL (70-105)
[2021-02-06 12:52] LABS: CARBON DIOXIDE 22 MMOL/L (21-32)
[2021-02-06 12:55] LABS: CREATININE SERUM 1.89 MG/DL (0.60-1.30); GFR ESTIMATED 35
[2021-02-06 12:56] LABS: BUN/CREATININE RATIO 11
--- NOTE | 2021-02-06 13:09 | Diagnostic Imaging Report ---
EXAM: Portable erect AP chest at 12:57 PM INDICATION: Syncope COMPARISON: There are no prior studies available for comparison. FINDINGS: The heart size is at the upper limits of normal. There are sternotomy wires and surgical clips evident. The lungs are clear. There is no sign of failure, pneumonia or of pleural effusion. The mediastinum is not widened. The osseous structures are intact. IMPRESSION: There is borderline cardiomegaly and evidence of prior cardiac surgery but there is no sign of an acute cardiopulmonary abnormality. Dictated by: Dictated on workstation # [id number]
[2021-02-06] MEDS ORDERED: NS IV 500 ML 500 ML IV SCH (13:45)
[2021-02-06] MEDS ORDERED: CATHETER FLUSH 10 ML SYR IV PRN (14:30)
[2021-02-06] MEDS: NS IV 1000 ML 1,000 ML IV SCH ×3 (14:48→23:22)
[2021-02-06] MEDS ORDERED: APIX5TAB PO (14:50)
[2021-02-06] MEDS ORDERED: METO50TA7 PO (14:52)
[2021-02-06] MEDS ORDERED: DILT120C85 PO (14:53)
[2021-02-06] MEDS ORDERED: FISH1CAP15 PO (14:54)
[2021-02-06] MEDS ORDERED: GLUC1CAP37 PO (14:57)
[2021-02-06] MEDS ORDERED: DOCU50LI11 PO (14:57)
[2021-02-06] MEDS ORDERED: VITA200C60 PO (14:57)
[2021-02-06] MEDS ORDERED: RANO500T3 PO (14:57)
[2021-02-06] MEDS ORDERED: MULT-974 PO (14:57)
[2021-02-06 15:55] VITALS: BP 156/75
[2021-02-06] MEDS ORDERED: FLUTICASONE NASAL SPRAY (FLONASE) 16 GM BTL NS PRN (16:00)
[2021-02-06 16:04] VITALS: BP 156/75
[2021-02-06 19:20] VITALS: BP 157/75
[2021-02-06 20:30] VITALS: BP 177/88
[2021-02-06] MEDS ORDERED: ALPRAZolam 0.25 MG (XANAX) TAB PO PRN (21:00)
[2021-02-06] MEDS ORDERED: rOPINIRole 0.25 MG (REQUIP) TAB PO ONE (23:15)
[2021-02-06] MEDS ORDERED: rOPINIRole 0.25 MG (REQUIP) TAB ONE (23:19)
[2021-02-06 23:23] VITALS: BP 157/68
[2021-02-07 03:24] VITALS: BP 157/81
[2021-02-07 07:05] LABS: BASOPHILS % (AUTO) 1 % (0-10); EOSINOPHILS # (AUTO) 0.3 10^3/uL (0.0-0.3); EOSINOPHILS % (AUTO) 4 % (0-10); HEMATOCRIT 43 % (40-54); HEMOGLOBIN 14.4 g/dL (13.3-17.7); LYMPHOCYTES % (AUTO) 31 % (12-44); MEAN CORPUSCULAR HEMOGLOBIN 33 pg (25-34); MEAN CORPUSCULAR HGB CONC 33 g/dL (32-36); MEAN CORPUSCULAR VOLUME 99 fL (80-99); MEAN PLATELET VOLUME 10.1 fL (9.0-12.2); MONOCYTES # (AUTO) 0.5 10^3/uL (0.0-1.0); MONOCYTES % (AUTO) 8 % (0-12); NEUTROPHILS # (AUTO) 3.7 10^3/uL (1.8-7.8); NEUTROPHILS % (AUTO) 57 % (42-75); PLATELET COUNT 149 10^3/uL (130-400); WHITE BLOOD COUNT 6.5 10^3/uL (4.3-11.0)
[2021-02-07 07:13] VITALS: BP 170/84
[2021-02-07 07:27] LABS: ALBUMIN 3.5 GM/DL (3.2-4.5); BILIRUBIN,TOTAL 0.7 MG/DL (0.1-1.0); CREATININE SERUM 1.24 MG/DL (0.60-1.30); POTASSIUM 3.9 MMOL/L (3.6-5.0); TOTAL PROTEIN 6.1 GM/DL (6.4-8.2)
[2021-02-07] MEDS ORDERED: METO-351 PO (08:36)
--- NOTE | 2021-02-07 08:43 | Consultation-Cardiology ---
HPI-Cardiology Cardiology Consultation Date of Consultation 02/07/21 Date of Admission Time Seen by Provider: 08:37 Indication: Bradycardia HPI 75 years old gentleman with extensive cardiac history including coronary artery disease, paroxysmal atrial fibrillation, was in his usual state of health until yesterday while he was sitting upright started to feel dizzy and lightheaded and diaphoretic. Patient was brought to the hospital by ambulance where he was noted to be bradycardic with a heart rate in the 50s and he was hypotensive. Received IV fluid, heart rate and blood pressure has recovered. Has been feeling well at this time. Denied any active chest pain. No palpitation. No full syncope. Has been managed by Dr. Rosario and Yessica Christianson and he reported that his metoprolol was cut down from 100 to 50 mg daily. Home Medications & Allergies Allergies: Coded Allergies: No Known Drug Allergies (Unverified , 02/26/19) Home Medication List Reviewed: Yes BDQ-Cnaewd-Hpmykw Hx Patient Social History Marital Status: Employed/Student: retired Smoking Status: Former Smoker 2nd Hand Smoke Exposure: Yes Alcohol Use?: No Immunizations Up To Date Tetanus Booster (TDap): Unknown Date of Pneumonia Vaccine: Mar 08, 2017 Date of Influenza Vaccine: Apr 07, 2019 Past Medical History Discussed below Family Medical History Family Medical Hx Laboratory Tests Test 02/06/21 12:20 02/07/21 06:55 Range/Units White Blood Count 9.6 6.5 4.3-11.0 10^3/uL Red Blood Count 4.28 L 4.40 4.30-5.52 10^6/uL Hemoglobin 14.0 14.4 13.3-17.7 g/dL Hematocrit 42 43 40-54 % Mean Corpuscular Volume 97 99 80-99 fL Mean Corpuscular Hemoglobin 33 33 25-34 pg Mean Corpuscular Hemoglobin Concent 34 33 32-36 g/dL Red Cell Distribution Width 14.2 14.1 10.0-14.5 % Platelet Count 161 149 130-400 10^3/uL Mean Platelet Volume 9.8 10.1 9.0-12.2 fL Immature Granulocyte % (Auto) 0 0 % Neutrophils (%) (Auto) 79 H 57 42-75 % Lymphocytes (%) (Auto) 12 31 12-44 % Monocytes (%) (Auto) 6 8 0-12 % Eosinophils (%) (Auto) 2 4 0-10 % Basophils (%) (Auto) 0 1 0-10 % Neutrophils # (Auto) 7.6 3.7 1.8-7.8 10^3/uL Lymphocytes # (Auto) 1.2 2.0 1.0-4.0 10^3/uL Monocytes # (Auto) 0.6 0.5 0.0-1.0 10^3/uL Eosinophils # (Auto) 0.2 0.3 0.0-0.3 10^3/uL Basophils # (Auto) 0.0 0.0 0.0-0.1 10^3/uL Immature Granulocyte # (Auto) 0.0 0.0 0.0-0.1 10^3/uL Sodium Level 136 138 135-145 MMOL/L Potassium Level 4.8 3.9 3.6-5.0 MMOL/L Chloride Level 107 110 H 98-107 MMOL/L Carbon Dioxide Level 22 21 21-32 MMOL/L Anion Gap 7 7 5-14 MMOL/L Blood Urea Nitrogen 20 H 16 7-18 MG/DL Creatinine 1.89 H 1.24 0.60-1.30 MG/DL Estimat Glomerular Filtration Rate 35 57 BUN/Creatinine Ratio 11 13 Glucose Level 112 H 83 70-105 MG/DL Calcium Level 9.6 9.0 8.5-10.1 MG/DL Troponin I < 0.028 <0.028 NG/ML Corrected Calcium 9.4 8.5-10.1 MG/DL Total Bilirubin 0.7 0.1-1.0 MG/DL Aspartate Amino Transf (AST/SGOT) 16 5-34 U/L Alanine Aminotransferase (ALT/SGPT) 14 0-55 U/L Alkaline Phosphatase 65 40-136 U/L Total Protein 6.1 L 6.4-8.2 GM/DL Albumin 3.5 3.2-4.5 GM/DL Review of Systems-General Review of Systems Constitutional: see HPI, diaphoresis, weakness EENTM: see HPI, no symptoms reported Respiratory: see HPI; No cough, No dyspnea on exertion, No hemoptysis, No orthopnea, No phlegm, No short of breath, No stridor, No wheezing, No other Cardiovascular: see HPI; No chest pain, No edema, No Hx of Intervention, No palpitations, No syncope, No vascular heart diseas, No other Gastrointestinal: no symptoms reported, see HPI Genitourinary: no symptoms reported, see HPI Musculoskeletal: no symptoms reported, see HPI Skin: no symptoms reported, see HPI Psychiatric/Neurological: No Symptoms Reported, See HPI All Other Systems Reviewed Negative Unless Noted: Yes Reviewed Test Results Reviewed Test Results Lab Laboratory Tests Test 02/06/21 12:20 02/07/21 06:55 Range/Units White Blood Count 9.6 6.5 4.3-11.0 10^3/uL Red Blood Count 4.28 L 4.40 4.30-5.52 10^6/uL Hemoglobin 14.0 14.4 13.3-17.7 g/dL Hematocrit 42 43 40-54 % Mean Corpuscular Volume 97 99 80-99 fL Mean Corpuscular Hemoglobin 33 33 25-34 pg Mean Corpuscular Hemoglobin Concent 34 33 32-36 g/dL Red Cell Distribution Width 14.2 14.1 10.0-14.5 % Platelet Count 161 149 130-400 10^3/uL Mean Platelet Volume 9.8 10.1 9.0-12.2 fL Immature Granulocyte % (Auto) 0 0 % Neutrophils (%) (Auto) 79 H 57 42-75 % Lymphocytes (%) (Auto) 12 31 12-44 % Monocytes (%) (Auto) 6 8 0-12 % Eosinophils (%) (Auto) 2 4 0-10 % Basophils (%) (Auto) 0 1 0-10 % Neutrophils # (Auto) 7.6 3.7 1.8-7.8 10^3/uL Lymphocytes # (Auto) 1.2 2.0 1.0-4.0 10^3/uL Monocytes # (Auto) 0.6 0.5 0.0-1.0 10^3/uL Eosinophils # (Auto) 0.2 0.3 0.0-0.3 10^3/uL Basophils # (Auto) 0.0 0.0 0.0-0.1 10^3/uL Immature Granulocyte # (Auto) 0.0 0.0 0.0-0.1 10^3/uL Sodium Level 136 138 135-145 MMOL/L Potassium Level 4.8 3.9 3.6-5.0 MMOL/L Chloride Level 107 110 H 98-107 MMOL/L Carbon Dioxide Level 22 21 21-32 MMOL/L Anion Gap 7 7 5-14 MMOL/L Blood Urea Nitrogen 20 H 16 7-18 MG/DL Creatinine 1.89 H 1.24 0.60-1.30 MG/DL Estimat Glomerular Filtration Rate 35 57 BUN/Creatinine Ratio 11 13 Glucose Level 112 H 83 70-105 MG/DL Calcium Level 9.6 9.0 8.5-10.1 MG/DL Troponin I < 0.028 <0.028 NG/ML Corrected Calcium 9.4 8.5-10.1 MG/DL Total Bilirubin 0.7 0.1-1.0 MG/DL Aspartate Amino Transf (AST/SGOT) 16 5-34 U/L Alanine Aminotransferase (ALT/SGPT) 14 0-55 U/L Alkaline Phosphatase 65 40-136 U/L Total Protein 6.1 L 6.4-8.2 GM/DL Albumin 3.5 3.2-4.5 GM/DL Physical Exam Physical Exam Vital Signs Vital Signs - First Documented 02/06/21 02/06/21 12:13 16:04 Temp 36.7 Pulse 48 Resp 16 B/P (MAP) 76/54 (61) Pulse Ox 96 O2 Delivery Room Air FiO2 21 Capillary Refill : Less Than 3 Seconds Height, Weight, BMI Height: '" Weight: lbs. oz. kg; 26.64 BMI Method: General Appearance: No Apparent Distress, WD/WN Eyes: Bilateral Eye Normal Inspection, Bilateral Eye PERRL, Bilateral Eye EOMI HEENT: PERRL/EOMI Neck: Normal Inspection Respiratory: Lungs Clear, Normal Breath Sounds, No Accessory Muscle Use, No Respiratory Distress Cardiovascular: Regular Rate, Rhythm, Normal Peripheral Pulses, Bradycardia Gastrointestinal: Normal Bowel Sounds, Non Tender, Soft Back: Normal Inspection, No CVA Tenderness, No Vertebral Tenderness Extremity: Normal Inspection, No Pedal Edema Neurologic/Psychiatric: Alert, Oriented x3, No Motor/Sensory Deficits, Normal 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 Patient has been maintained on Cardizem CD 120 mg and Toprol-XL 50 mg, I will discontinue Cardizem and decrease Toprol to 25 mg daily, educated on hydration during and using compression socks. Discussed in length the management plan, has history of atrial fibrillation, he might require a pacemaker to achieve adequate control of his heart rate in the future. Patient will discuss it with Dr. 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 Orozco in February 2020 showing moderate coronary artery disease, he has patent vein graft jump graft to the right PDA and right posterolateral branch, had moderate disease in the LAD confirmed by FFR, occluded ESTES, occluded AV groove branch. Conservative management was recommended. Has been maintained on isosorbide and Ranexa Paroxysmal atrial fibrillation, maintained on Eliquis, has been on Cardizem and Toprol-XL which was changed as described above Chronic stable angina, no active chest pain was reported. Hypertension, monitor blood pressure after adjusting his medication Hyperlipidemia maintained on statin History of cholecystectomy, pancreatitis. I discussed with the patient the management plan, okay for discharge and follow- up with his primary loader operator supervisor as an outpatient AMINATA FOX MD Feb 07, 2021 08:43
[2021-02-07] MEDS ORDERED: ASPIRIN 81 MG CHEW (CHILDREN'S ASA) PO SCH (09:00)
[2021-02-07] MEDS ORDERED: LORATADINE (CLARITIN) 10 MG TAB PO SCH (09:00)
[2021-02-07] MEDS ORDERED: PANTOPRAZOLE 40 MG (PROTONIX) TAB PO SCH (09:00)
[2021-02-07] MEDS ORDERED: NON-FORMULARY MEDICATION 1 EA EA (Omeprazole 40 MG) PO SCH (09:00)
--- NOTE | 2021-02-07 10:55 | Short Stay Summary ---
JERARDO VALADEZ MED STUDENT 02/07/21 1055: History of Present Illness History of Present Illness Reason for visit/HPI Diego Christine is a 75 year old white male who presented to the ED on 02-06 following a syncopal episode. 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 He reports that he had to stop playing the instrument and sat down near his . He never lost consciousness or fell. After [employer] he was being helped into his home by several family members who report he had a syncopal episode lasting approximately one minute. Family denied he hit his head or fell. Reportedly helped him slide to the ground. He reports having a similar episode about one month ago as well. PMH is significant for CAD, HTN, HLP, RA, TIA, paroxysmal atrial fibrillation, and CABG in 2009 with subsequent coronary stenting in 2012. Currently he denies chest pain, SOB, lightheadedness, nausea, diarrhea, and fever. He reports tolerating po intake well. Denies urinary or GI complaints. Date of Admission Feb 06, 2021 at 13:31 Date of Discharge Time Seen by Provider: 08:30 Attending Physician Olive Manjarrez DO Admitting Physician Mick Lamb MD Consult Allergies and Home Medications Allergies Coded Allergies: No Known Drug Allergies (Unverified , 02/26/19) Home Medications ALPRAZolam 0.25 Mg Tablet, 0.25 MG PO TID, (Reported) Last Action: Continued Apixaban 5 Mg Tablet, 5 MG PO BID, (Reported) Last Action: New Order Atorvastatin Calcium 40 Mg Tablet, 40 MG PO DAILY, (Reported) Last Action: Continued Fluticasone Propionate 16 Gm [place].susp, 16 GM NSEACH PRN, (Reported) Last Action: Continued Isosorbide Mononitrate 30 Mg Tab.er.24h, 30 MG PO DAILY, (Reported) Last Action: Held Lisinopril 20 Mg Tablet, 20 MG PO DAILY, (Reported) Last Action: Held Loratadine 10 Mg Tablet, 10 MG PO DAILY, (Reported) Last Action: Continued Metoprolol Succinate 25 Mg Tab.er.24h, 25 MG PO DAILY Prescribed by: AMINATA FOX on 02/07/21 0836 Omeprazole 40 Mg Capsule.dr, 40 MG PO DAILY, (Reported) Last Action: Converted Ranolazine 500 Mg Tab.er.12h, 500 MG PO BID, (Reported) Last Action: Held Past Vdzmxxs-Lsosbd-Nsuhmo Hx Patient Social History Marrital Status: Employed/Student: retired Smoking Status: Former Smoker 2nd Hand Smoke Exposure: Yes Recent Hopitalizations: No Have you traveled recently?: No Alcohol Use?: No Pt feels they are or have been: No Immunizations Up To Date Tetanus Booster (TDap): Unknown Pediatric: Yes Date of Pneumonia Vaccine: Mar 08, 2017 Date of Influenza Vaccine: Apr 07, 2019 Surgeries CABG, Coronary Stent Respiratory No Currently Using CPAP: No Currently Using BIPAP: No Cardiovascular Atrial Fibrillation, Coronary Artery Disease, High Cholesterol, Hypertension Neurological Yes TIA Reproductive System Hx Reproductive Disorders: No Sexually Transmitted Disease: No HIV/AIDS: No Genitourinary No Gastrointestinal Yes Pancreatitis Musculoskeletal Yes Rheumatoid Arthritis Endocrine History of Endocrine Disorders: No HEENT History of HEENT Disorders: No Loss of Vision: Denies Hearing Impairment: Denies Cancer No Psychosocial History of Psychiatric Problem: No Integumentary History of Skin or Integumenta: No Review of Systems Constitutional: No chills, No diaphoresis, No dizziness, No fever, No malaise, No weight loss EENTM: No hearing loss, No blurred vision, No double vision, No vision loss Respiratory: No cough, No dyspnea on exertion, No hemoptysis, No short of breath Cardiovascular: No chest pain, No edema; Hx of Intervention (CABG and coronary stenting); No palpitations Gastrointestinal: No abdominal pain, No constipation, No diarrhea, No hematemesis, No melena, No nausea, No vomiting Genitourinary: No decreased output, No frequency, No hesitancy Musculoskeletal: No back pain, No joint swelling Skin: No change in color, No change in hair/nails, No dryness, No lesions, No rash Psychiatric/Neurological: Denies Anxiety, Denies Depressed, Denies Headache Physical Exam Vital Signs Vital Signs - First Documented 02/06/21 02/06/21 12:13 16:04 Temp 36.7 Pulse 48 Resp 16 B/P (MAP) 76/54 (61) Pulse Ox 96 O2 Delivery Room Air FiO2 21 Capillary Refill : Less Than 3 Seconds Height, Weight, BMI Height: '" Weight: lbs. oz. kg; 26.64 BMI Method: General Appearance: No Apparent Distress, WD/WN Eyes: Bilateral Eye Normal Inspection, Bilateral Eye PERRL, Bilateral Eye EOMI HEENT: PERRL/EOMI, Pharynx Normal, Moist Mucous Membranes Neck: Full Range of Motion, Normal Inspection, Non Tender Respiratory: Chest Non Tender, Lungs Clear, No Accessory Muscle Use, No Respiratory Distress, Decreased Breath Sounds Cardiovascular: Regular Rate, Rhythm, No Edema, Normal Peripheral Pulses Gastrointestinal: Normal Bowel Sounds, Non Tender, Soft Rectal: Deferred Back: Normal Inspection, No CVA Tenderness, No Vertebral Tenderness Extremity: Normal Capillary Refill, Non Tender, No Calf Tenderness, No Pedal Edema Neurologic/Psychiatric: Alert, Oriented x3, No Motor/Sensory Deficits, Normal Mood/Affect Skin: Normal Color, Warm/Dry Lymphatic: No Adenopathy Short Stay Diagnosis Discharge Diagnosis-Short Stay Admission Diagnosis: Syncope Sinus Bradycardia Hypotension Final Discharge Diagnosis: Syncope Sinus Bradycardia CAD Paroxysmal Atrial Fibrillation HTN HLP RA H/O pancreatitis H/O TIA Conclusion Labs Laboratory Tests 02/06/21 12:20: White Blood Count 9.6, Red Blood Count 4.28L, Hemoglobin 14.0, Hematocrit 42, Mean Corpuscular Volume 97, Mean Corpuscular Hemoglobin 33, Mean Corpuscular Hemoglobin Concent 34, Red Cell Distribution Width 14.2, Platelet Count 161, Mean Platelet Volume 9.8, Immature Granulocyte % (Auto) 0, Neutrophils (%) (Auto) 79H, Lymphocytes (%) (Auto) 12, Monocytes (%) (Auto) 6, Eosinophils (%) (Auto) 2, Basophils (%) (Auto) 0, Neutrophils # (Auto) 7.6, Lymphocytes # (Auto) 1.2, Monocytes # (Auto) 0.6, Eosinophils # (Auto) 0.2, Basophils # (Auto) 0.0, Immature Granulocyte # (Auto) 0.0, Sodium Level 136, Potassium Level 4.8, Chloride Level 107, Carbon Dioxide Level 22, Anion Gap 7, Blood Urea Nitrogen 20H, Creatinine 1.89H, Estimat Glomerular Filtration Rate 35, BUN/Creatinine Ratio 11, Glucose Level 112H, Calcium Level 9.6, Troponin I < 0.028 02/07/21 06:55: White Blood Count 6.5, Red Blood Count 4.40, Hemoglobin 14.4, Hematocrit 43, Mean Corpuscular Volume 99, Mean Corpuscular Hemoglobin 33, Mean Corpuscular Hemoglobin Concent 33, Red Cell Distribution Width 14.1, Platelet Count 149, Mean Platelet Volume 10.1, Immature Granulocyte % (Auto) 0, Neutrophils (%) (Auto) 57, Lymphocytes (%) (Auto) 31, Monocytes (%) (Auto) 8, Eosinophils (%) (Auto) 4, Basophils (%) (Auto) 1, Neutrophils # (Auto) 3.7, Lymphocytes # (Auto) 2.0, Monocytes # (Auto) 0.5, Eosinophils # (Auto) 0.3, Basophils # (Auto) 0.0, Immature Granulocyte # (Auto) 0.0, Sodium Level 138, Potassium Level 3.9, Chloride Level 110H, Carbon Dioxide Level 21, Anion Gap 7, Blood Urea Nitrogen 16, Creatinine 1.24, Estimat Glomerular Filtration Rate 57, BUN/Creatinine Ratio 13, Glucose Level 83, Calcium Level 9.0, Corrected Calcium 9.4, Total Bilirubin 0.7, Aspartate Amino Transf (AST/SGOT) 16, Alanine Aminotransferase (ALT/SGPT) 14, Alkaline Phosphatase 65, Total Protein 6.1L, Albumin 3.5 Conclusion/Plan Discharge patient to home with outpatient followup with primary sandblaster supervisor in [place], [place] Decreased metoprolol dosage from 50mg to 25mg Restart home medications with change to toprolol as noted above Return to ED with worsening or recurrence of syncopal episodes/braydcardia OLIVE MANJARREZ 02/08/21 0523: History of Present Illness History of Present Illness Reason for visit/HPI CC: Syncopal episode with bradycardia HPI: This is a 75yoWM clinic pt of Dr. Lamb who had two syncopal episodes at home brought to the ER found to have bradycardia and cardiology was consulted and likely will require pacemaker in the future. PT and OT saw him and everything remained stable and he was deemed stable for DC with modifications of Metoprolol by cardiology and close follow up with his regular sandblaster supervisor. Allergies and Home Medications Allergies Coded Allergies: No Known Drug Allergies (Unverified , 02/26/19) Home Medications ALPRAZolam 0.25 Mg Tablet, 0.25 MG PO TID, (Reported) Last Action: Continued Apixaban 5 Mg Tablet, 5 MG PO BID, (Reported) Last Action: New Order Atorvastatin Calcium 40 Mg Tablet, 40 MG PO DAILY, (Reported) Last Action: Continued Fluticasone Propionate 16 Gm [place].susp, 16 GM NSEACH PRN, (Reported) Last Action: Continued Isosorbide Mononitrate 30 Mg Tab.er.24h, 30 MG PO DAILY, (Reported) Last Action: Held Lisinopril 20 Mg Tablet, 20 MG PO DAILY, (Reported) Last Action: Held Loratadine 10 Mg Tablet, 10 MG PO DAILY, (Reported) Last Action: Continued Metoprolol Succinate 25 Mg Tab.er.24h, 25 MG PO DAILY Prescribed by: AMINATA FOX on 02/07/21 0836 Omeprazole 40 Mg Capsule.dr, 40 MG PO DAILY, (Reported) Last Action: Converted Ranolazine 500 Mg Tab.er.12h, 500 MG PO BID, (Reported) Last Action: Held Patient Home Medication List Home Medication List Reviewed: Yes Past Kjtgpqd-Ezobpn-Mklmmp Hx Patient Social History Marrital Status: Employed/Student: retired Smoking Status: Never a Smoker Cardiovascular Chronic Edema/Swelling, Coronary Artery Disease, High Cholesterol, Hypertension Genitourinary Benign Prostatic Hyperpl Review of Systems Constitutional: see HPI, dizziness, malaise, weakness EENTM: no symptoms reported Respiratory: no symptoms reported Cardiovascular: no symptoms reported Gastrointestinal: no symptoms reported Genitourinary: no symptoms reported Musculoskeletal: no symptoms reported Skin: no symptoms reported Psychiatric/Neurological: No Symptoms Reported All Other Systems Reviewed Negative Unless Noted: Yes Physical Exam General Appearance: No Apparent Distress, WD/WN, Chronically ill, Obese Eyes: Bilateral Eye Normal Inspection, Bilateral Eye PERRL, Bilateral Eye EOMI HEENT: PERRL/EOMI, Normal ENT Inspection, Pharynx Normal Neck: Full Range of Motion, Normal Inspection, Non Tender, Supple, Carotid Bruit Respiratory: Chest Non Tender, Lungs Clear, Normal Breath Sounds, No Accessory Muscle Use, No Respiratory Distress Cardiovascular: Regular Rate, Rhythm, No Edema, No Gallop, No JVD, No Murmur, Normal Peripheral Pulses Gastrointestinal: Normal Bowel Sounds, No Organomegaly, No Pulsatile Mass, Non Tender, Soft Back: Normal Inspection, No CVA Tenderness, No Vertebral Tenderness Extremity: Normal Capillary Refill, Normal Inspection, Normal Range of Motion, Non Tender, No Calf Tenderness, No Pedal Edema Neurologic/Psychiatric: Alert, Oriented x3, No Motor/Sensory Deficits, Normal Mood/Affect Skin: Normal Color, Warm/Dry Lymphatic: No Adenopathy Clinical Quality Measures Admission Status Admission Status: Observation Short Stay Diagnosis Discharge Diagnosis-Short Stay Admission Diagnosis: Syncope Hypotension Bradycardia Final Discharge Diagnosis: Syncope Hypotension Bradycardia Conclusion Conclusion/Plan Discharge plan Toprol-XL 25 mg Supervisory-Addendum Brief Verification & Attestation Participated in pt care: history, MDM, physical Personally performed: exam, history, MDM, supervision of care Care discussed with: Medical Student Procedures: n/a Results interpretation: Verified all documentation Verification and Attestation of Medical Student E/M Service A medical student performed and documented this service in my presence. I reviewed and verified all information documented by the medical student and made modifications to such information, when appropriate. I personally performed the physical exam and medical decision making. Olive Manjarrez, Feb 08, 2021,05:23 JERARDO VALADEZ MED STUDENT Feb 07, 2021 10:55 OLIVE MANJARREZ DO Feb 08, 2021 05:23
[2021-02-07 11:59] VITALS: BP 170/84
== END 2021-02-07 10:43 | disposition home or self-care (01) ==
LOC: EDUNIT# 12:13 → ER 12:15 → CSD 13:31
PROVIDERS: ADMIT Family Medicine; ATTEND Internal Medicine
DX: R55 Syncope and collapse (principal); I49.3 Ventricular premature depolarization; I95.9 Hypotension, unspecified; I45.10 Unspecified right bundle-branch block; I25.2 Old myocardial infarction; I48.0 Paroxysmal atrial fibrillation; I25.118 Atherosclerotic heart disease of native coronary artery with other forms of angina pectoris; E78.5 Hyperlipidemia, unspecified; M06.9 Rheumatoid arthritis, unspecified; Y92.22 Religious institution as the place of occurrence of the external cause; Z79.82 Long term (current) use of aspirin; Z79.899 Other long term (current) drug therapy; Z79.02 Long term (current) use of antithrombotics/antiplatelets; Z87.891 Personal history of nicotine dependence; Z79.01 Long term (current) use of anticoagulants; Z90.49 Acquired absence of other specified parts of digestive tract; Z87.19 Personal history of other diseases of the digestive system; Z95.1 Presence of aortocoronary bypass graft; Z86.73 Personal history of transient ischemic attack (TIA), and cerebral infarction without residual deficits; Z95.5 Presence of coronary angioplasty implant and graft
CPT/HCPCS: 71045; 80048; 80053; 84484; 85025 ×2; 93005 ×2; 93306; 99284; G0378; 36415

== ENCOUNTER 2021-04-05 11:04 | Emergency (ER) | payer MEDICARE ==
[~2021-04-05] VITALS: Ht 170.2 cm; Wt 85.0 kg
[~2021-04-05 11:04] MED LIST changes: +APIX5TAB PO; +DILT120C85 PO; +DOCU50LI11 PO; +FISH1CAP15 PO; +GLUC1CAP37 PO; +METO-351 PO; +METO50TA7 PO; +MULT-974 PO; +RANO500T3 PO; +VITA200C60 PO
[2021-04-05 11:29] LABS: HEMOGLOBIN 13.5 g/dL (13.3-17.7); WHITE BLOOD COUNT 7.4 10^3/uL (4.3-11.0)
[2021-04-05 11:30] LABS: BASOPHILS % (AUTO) 0 % (0-10); EOSINOPHILS % (AUTO) 0 % (0-10); HEMATOCRIT 40 % (40-54); LYMPHOCYTES % (AUTO) 13 % (12-44); MEAN CORPUSCULAR HEMOGLOBIN 33 pg (25-34); MEAN CORPUSCULAR HGB CONC 33 g/dL (32-36); MEAN CORPUSCULAR VOLUME 97 fL (80-99); MEAN PLATELET VOLUME 9.9 fL (9.0-12.2); MONOCYTES % (AUTO) 10 % (0-12); NEUTROPHILS % (AUTO) 76 % (42-75); PLATELET COUNT 145 10^3/uL (130-400)
[2021-04-05 11:31] LABS: MONOCYTES # (AUTO) 0.8 X 10^3 (0.0-1.0); NEUTROPHILS # (AUTO) 5.6 X 10^3 (1.8-7.8)
[2021-04-05 11:38] VITALS: BP_SYST 102; BP_SYST 78; BP_SYST 96; BP_DIAS 50; BP_DIAS 51; BP_DIAS 59
--- NOTE | 2021-04-05 11:45 | Diagnostic Imaging Report ---
CHEST 1 VIEW AP/PA ONLY Indication: Shortness of air Comparison: 02/06/2021 Findings: No focal airspace disease in the visualized lungs. Please note that the posterior lower lobes are poorly evaluated by portable radiography. No pleural effusion or pneumothorax. Median sternotomy is stable in appearance with CABG. Cardiac and mediastinal contours are normal. Impression: 1. No acute cardiopulmonary process by portable radiography. Dictated by: Dictated on workstation # [id number]
[2021-04-05 11:53] LABS: CARBON DIOXIDE 24 MMOL/L (21-32); CHLORIDE 105 MMOL/L (98-107); POTASSIUM 4.4 MMOL/L (3.6-5.0); SODIUM 138 MMOL/L (135-145)
[2021-04-05 11:54] LABS: ALANINE AMINOTRANSFERASE 23 U/L (0-55); ALBUMIN 3.5 GM/DL (3.2-4.5); ALKALINE PHOSPHATASE 73 U/L (40-136); BILIRUBIN,TOTAL 0.7 MG/DL (0.1-1.0); BUN/CREATININE RATIO 14; CALCIUM 9.2 MG/DL (8.5-10.1); CREATININE SERUM 1.73 MG/DL (0.60-1.30); GFR ESTIMATED 39; GLUCOSE 133 MG/DL (70-105); TOTAL PROTEIN 5.9 GM/DL (6.4-8.2)
--- NOTE | 2021-04-05 12:40 | ED Syncope ---
General Chief Complaint: Dizziness/Syncope Stated Complaint: LOW BP/HR Nursing Triage Note: PT TO ROOM FS06 [facility]IA [facility] WITH C/O SYNCOPE AND HYPOTENSION AT HOME. EMS REPORTS PT AMBULATED DOWN STAIRS WITH ASSIST TO GET TO EMS COT. PT REPORTS CHANGE IN MEDICAIONS X2-3 WEEKS AGO. PT A/O X4. PT DENIES CP, N/V, LOC. Source of Information: Patient History of Present Illness Date Seen by Provider: Apr 05, 2021 Time Seen by Provider: 11:15 Initial Comments Patient is a 75 year old male with history with recurrent syncope currently under evaluation with loop recorder presents with witnessed syncopal at home. Patient was getting out of the shower after taking blood pressure medication. Patterson dizzy lightheaded and was caught up and helped to the ground before he lost consciousness for approximately 2 minutes. He broke up in a cold sweat became nauseated. Denies chest pain palpitations, shortness of breath. Symptoms have since resolved but he remains bradycardic and hypotensive. EMS was contacted in fluid bolus was started. Patient bradycardic with heart rate of mid 50s and systolic blood pressure in the upper 70s on ED arrival. Other than feeling generally weak. Patient denies symptoms or complaints at this time. Patient's lockstitch coat joiner is Dr. Rosario who practices out of [facility] Symptoms Prior to Episode: Other Precipitating Factors: Other Loss of Consciousness: Prolonged (Minutes) Current Symptoms: Other Allergies and Home Medications Allergies Coded Allergies: No Known Drug Allergies (Unverified , 02/26/19) Patient Home Medication List Home Medication List Reviewed: Yes ALPRAZolam (Xanax Tablet) 0.25 Mg Tablet, 0.25 MG PO TID, (Reported) Entered as Reported by: YESSENIA GRAY on 02/26/20 0747 Apixaban (Eliquis) 5 Mg Tablet, 5 MG PO BID, (Reported) Entered as Reported by: DEVIN LUCAS on 02/06/21 1450 Atorvastatin Calcium (Atorvastatin Calcium) 40 Mg Tablet, 40 MG PO DAILY, (Reported) Entered as Reported by: YESSENIA GRAY on 02/26/20 0747 Docusate Sodium (Stool Softener) 50 Mg/5 Ml Liquid, 50 MG PO, (Reported) Entered as Reported by: DEVIN LUCAS on 02/06/21 1457 Fish Oil/Dha/Epa (Fish Oil 1,200 mg Fish Oil) 1 Each Capsule, 1 EACH PO, (Reported) Entered as Reported by: DEVIN LUCAS on 02/06/21 145 Fluticasone Propionate (Fluticasone Propionate) 16 Gm [place].susp, 16 GM NSEACH PRN, (Reported) Entered as Reported by: YESSENIA GRAY on 02/26/20 07 Glucosa Henson 2Kcl/Chondroitin Henson (Glucosamine & Chondroitin Cap) 1 Each Capsule, 1 EACH PO, (Reported) Entered as Reported by: DEVIN LUCAS on 02/06/211456 Isosorbide Mononitrate (Isosorbide Mononitrate ER) 30 Mg Tab.er.24h, 30 MG PO DAILY, (Reported) Entered as Reported by: YESSENIA GRAY on 02/26/20746 Lisinopril (Lisinopril) 20 Mg Tablet, 20 MG PO DAILY, (Reported) Entered as Reported by: YESSENIA GRAY on 02/26/20746 Loratadine (Loratadine) 10 Mg Tablet, 10 MG PO DAILY, (Reported) Entered as Reported by: YESSENIA GRAY on 02/26/20746 Metoprolol Succinate (Toprol Xl) 25 Mg Tab.er.24h, 25 MG PO DAILY Prescribed by: AMINATA FOX on 02/07/21 0836 Multivitamin (Multi-Vitamin Daily) 1 Each Tablet, 1 EACH PO, (Reported) Entered as Reported by: DEVIN LUCAS on 02/06/211456 Omeprazole (Omeprazole) 40 Mg Capsule.dr, 40 MG PO DAILY, (Reported) Entered as Reported by: YESSENIA GRAY on 02/26/20746 Ranolazine (Ranolazine ER) 500 Mg Tab.er.12h, 500 MG PO BID, (Reported) Entered as Reported by: YESSENIA GRAY on 02/26/20746 Ranolazine (Ranexa) 500 Mg Tab.er.12h, 500 MG PO, (Reported) Entered as Reported by: DEVIN LUCAS on 02/06/211456 Vitamin E (Dl,Tocopheryl Acet) (Vitamin E) 90 Mg Capsule, 180 MG PO, (Reported) Entered as Reported by: DEVIN LUCAS on 02/06/211456 Review of Systems Constitutional: see HPI EENTM: see HPI Respiratory: see HPI Cardiovascular: see HPI Gastrointestinal: see HPI Genitourinary: see HPI Musculoskeletal: see HPI Skin: see HPI Psychiatric/Neurological: See HPI Past Vqcacas-Vazhbl-Qfdbey Hx Patient Social History Tobacco Use?: Yes Smoking Status: Former Smoker Smokeless Tobacco Frequency: Never a User Use of E-Cig and/or Vaping Alphonso: Never a User Substance use?: No Alcohol Use?: Yes Alcohol Frequency: Rarely Pt feels they are or have been: No Immunizations Up To Date Tetanus Booster (TDap): Unknown PED Vaccines UTD: Yes First/Initial COVID19 Vaccinat: 08/2020 Second COVID19 Vaccination Randy: 09/2020 COVID19 Vaccine Photo Studio Assistant: SONNY Past Medical History CABG, Coronary Stent Respiratory: No Currently Using CPAP: No Currently Using BIPAP: No Chronic Edema/Swelling, Coronary Artery Disease, High Cholesterol, Hypertension Neurological: Yes TIA Reproductive Disorders: No Sexually Transmitted Disease: No HIV/AIDS: No Genitourinary: No Benign Prostatic Hyperpl Gastrointestinal: Yes Pancreatitis Musculoskeletal: Yes Rheumatoid Arthritis Endocrine: No HEENT: No Loss of Vision: Denies Hearing Impairment: Denies Cancer: No Psychosocial: No Integumentary: No Physical Exam Vital Signs Vital Signs - First Documented 04/05/21 11:04 Temp 35.7 Pulse 61 Resp 16 B/P (MAP) 100/54 (69) O2 Delivery Room Air Capillary Refill : Less Than 3 Seconds Height, Weight, BMI Height: '" Weight: lbs. oz. kg; 29.00 BMI Method: General Appearance: No Apparent Distress, WD/WN HEENT: PERRL/EOMI, Normal ENT Inspection, Pharynx Normal Neck: Full Range of Motion, Normal Inspection, Supple Cardiovascular: Regular Rate, Rhythm, No Edema Respiratory: Chest Non Tender, Lungs Clear Gastrointestinal: Soft Back: Normal Inspection, No CVA Tenderness Neurologic/Psychiatric: Alert, Oriented x3 Cranial Nerves: PERRL Motor/Sensory: No Motor Deficit, No Sensory Deficit Skin: Normal Color Focused Exam Sepsis Stage: Ruled Out Progress/Results/Core Measures Results/Orders Lab Results Laboratory Tests Test 04/05/21 11:10 Range/Units White Blood Count 7.4 4.3-11.0 10^3/uL Red Blood Count 4.16 L 4.30-5.52 10^6/uL Hemoglobin 13.5 13.3-17.7 g/dL Hematocrit 40 40-54 % Mean Corpuscular Volume 97 80-99 fL Mean Corpuscular Hemoglobin 33 25-34 pg Mean Corpuscular Hemoglobin Concent 33 32-36 g/dL Red Cell Distribution Width 13.2 10.0-14.5 % Platelet Count 145 130-400 10^3/uL Mean Platelet Volume 9.9 9.0-12.2 fL Immature Granulocyte % (Auto) 0 % Neutrophils (%) (Auto) 76 H 42-75 % Lymphocytes (%) (Auto) 13 12-44 % Monocytes (%) (Auto) 10 0-12 % Eosinophils (%) (Auto) 0 0-10 % Basophils (%) (Auto) 0 0-10 % Neutrophils # (Auto) 5.6 1.8-7.8 X 10^3 Lymphocytes # (Auto) 1.0 1.0-4.0 X 10^3 Monocytes # (Auto) 0.8 0.0-1.0 X 10^3 Eosinophils # (Auto) 0.0 0.0-0.3 10^3/uL Basophils # (Auto) 0.0 0.0-0.1 10^3/uL Immature Granulocyte # (Auto) 0.0 0.0-0.1 10^3/uL Sodium Level 138 135-145 MMOL/L Potassium Level 4.4 3.6-5.0 MMOL/L Chloride Level 105 98-107 MMOL/L Carbon Dioxide Level 24 21-32 MMOL/L Anion Gap 9 5-14 MMOL/L Blood Urea Nitrogen 25 H 7-18 MG/DL Creatinine 1.73 H 0.60-1.30 MG/DL Estimat Glomerular Filtration Rate 39 BUN/Creatinine Ratio 14 Glucose Level 133 H 70-105 MG/DL Calcium Level 9.2 8.5-10.1 MG/DL Corrected Calcium 9.6 8.5-10.1 MG/DL Total Bilirubin 0.7 0.1-1.0 MG/DL Aspartate Amino Transf (AST/SGOT) 32 5-34 U/L Alanine Aminotransferase (ALT/SGPT) 23 0-55 U/L Alkaline Phosphatase 73 40-136 U/L Troponin I < 0.30 <0.30 NG/ML Total Protein 5.9 L 6.4-8.2 GM/DL Albumin 3.5 3.2-4.5 GM/DL My Orders Orders - JENNIFER STOKES DO Cbc With Automated Diff (04/05/21 11:15) Comprehensive Metabolic Panel (04/05/21 11:15) Troponin I Fs (04/05/21 11:15) Ekg Tracing (04/05/21 11:15) Chest 1 View Ap/Pa Only (04/05/21 11:15) Vital Signs/I&O 04/05/21 04/05/21 11:04 11:38 Temp 35.7 Pulse 61 58 68 69 Resp 16 B/P (MAP) 100/54 (69) 96/50 (65) 102/59 (73) 78/51 (60) O2 Delivery Room Air Blood Pressure Mean: 60 Departure Communication (Admissions) EKG: Sinus bradycardia with right bundle branch block. No acute ST-T wave changes. Lab work reassuring. Vital signs remained stable on monitor. Patient is not orthostatic upon standing. Patient does not have a his upload device to send recording data to his lockstitch coat joiner. Transfer request to [facility] was declined due to lack of bed availability. i Discussed this with the patient and they prefer to go home and upload data and contact your lockstitch coat joiner office this afternoon for further recommendations, and perhaps expedited pacemaker placement. I think this is a reasonable plan. Return precautions reviewed. Patient's verbalized understanding and agreement discharge instructions prior to departure Impression Primary Impression: Syncope Additional Impression: Bradycardia Disposition: 01 HOME, SELF-CARE Condition: Stable Departure-Patient Inst. Decision time for Depature: 13:52 Referrals: NEVA PERSAUD MD (PCP/Family) Primary Care Physician Patient Instructions: Bradycardia, Fainting, Adult ED Add. Discharge Instructions: Please upload data from your monitor car operator to your lockstitch coat joiner office upon returning home. Contact your lockstitch coat joiner office later this afternoon and update them regarding your ER visit and for further management and recommendations. Avoid sudden position changes, hot showers and standing in the same position for several minutes at a time as your increased risk of fall and injury. Do not drive until you are cleared by your lockstitch coat joiner. Return to the ED if new or worsening symptoms. All discharge instructions reviewed with patient and/or family. Voiced understanding. JENNIFER STOKES DO Apr 05, 2021 12:40
[2021-04-05 14:01] VITALS: BP 125/72
== END 2021-04-05 14:01 | disposition home or self-care (01) ==
LOC: EDUNIT# 11:04 → ER FS 11:05
DX: R55 Syncope and collapse (principal); R00.1 Bradycardia, unspecified; I10 Essential (primary) hypertension; E78.00 Pure hypercholesterolemia, unspecified; I25.10 Atherosclerotic heart disease of native coronary artery without angina pectoris; Z86.73 Personal history of transient ischemic attack (TIA), and cerebral infarction without residual deficits; Z87.891 Personal history of nicotine dependence; Z79.01 Long term (current) use of anticoagulants; Z79.899 Other long term (current) drug therapy
CPT/HCPCS: 36415; 71045; 80053; 84484; 85025; 93005

== ENCOUNTER → 2021-08-15 | Outpatient (CLI) | payer MEDICARE ==
--- NOTE | 2021-08-15 15:41 | Diagnostic Imaging Report ---
INDICATION: Left chest swelling near the patient's known pacemaker. FINDINGS: Sonographic interrogation of the area of swelling around the left pacemaker was performed. No fluid collection or mass is detected. No sonographic abnormality is detected. IMPRESSION: No sonographic abnormality is detected. Dictated by: Dictated on workstation # [id number]
== END ==
LOC: RAD 14:15
PROVIDERS: ATTEND Internal Medicine
DX: R22.2 Localized swelling, mass and lump, trunk (principal); Z95.0 Presence of cardiac pacemaker
CPT/HCPCS: 76604

== ENCOUNTER → 2021-08-17 | Outpatient (CLI) | payer MEDICARE ==
[~2021-08-17] MED LIST changes: +CATHETER FLUSH 10 ML SYR IV PRN; +HOLD METFORMIN - RECEIVED CONTRAST 20 ML VIAL IV SCH; +IOHEXOL 350 MG/ML 100 ML (OMNIPAQUE 350) VIAL IV ONE; +NS 100 ML (IVPB) BAG IV ONE
[2021-08-17 13:35] LABS: CREATININE SERUM 1.62 MG/DL (0.60-1.30)
--- NOTE | 2021-08-17 14:29 | Diagnostic Imaging Report ---
CT CHEST W TECHNIQUE: Multiple contiguous axial images were obtained through the chest with the use of intravenous contrast. All CT scans use one or more of the following dose optimizing techniques: Automated exposure control, MA and/or KvP adjustment based on a patient size and exam type, or iterative reconstruction. INDICATION: Painful chest wall mass in the left anterior chest. COMPARISON: None available. FINDINGS: Lungs and airway: A nodular focus of retained secretions is present in the right mainstem bronchus. Otherwise, airway is clear. No pneumonia or edema. No suspicious pulmonary nodules. Pleura: No pleural effusion or pneumothorax. Heart and mediastinum: No supraclavicular or axillary lymphadenopathy. No mediastinal or hilar lymphadenopathy. CABG has been performed, and there is no pericardial effusion. Normal-caliber thoracic aorta without dissection. No hiatal hernia. Upper abdomen: Cholecystectomy. No acute abnormality in the upper abdomen. Musculoskeletal: Left pectoral transvenous pacemaker has implanted generator pack in the left upper chest subcutaneous fat. There is no soft tissue mass or fluid collection around the generator pack. The leads are intact and appropriately terminate in the right atrium and right ventricle. IMPRESSION: 1. Left pectoral implanted pacemaker has no abnormality around the generator pack in the left anterior chest wall. 2. No soft tissue mass or fluid collection within the chest wall. 3. No intrathoracic acute abnormality. Dictated by: Dictated on workstation # [id number]
== END ==
LOC: LAB FS 12:59
PROVIDERS: ATTEND Nurse Practitioner Family
DX: R22.2 Localized swelling, mass and lump, trunk (principal); Z95.0 Presence of cardiac pacemaker
CPT/HCPCS: 36415; 71260; 82565; 84520; Q9967

== ENCOUNTER → 2022-08-01 | Outpatient (CLI) | payer MEDICARE ==
[~2022-08-01] MED LIST changes: -CATHETER FLUSH 10 ML SYR IV PRN; +CLOP-31 PO; -CLOP75TA69 PO; -HOLD METFORMIN - RECEIVED CONTRAST 20 ML VIAL IV SCH; -IOHEXOL 350 MG/ML 100 ML (OMNIPAQUE 350) VIAL IV ONE; -NS 100 ML (IVPB) BAG IV ONE
--- NOTE | 2022-08-01 11:50 | Diagnostic Imaging Report ---
PROCEDURE: CT abdomen and pelvis without contrast. TECHNIQUE: Multiple contiguous axial images were obtained through the abdomen and pelvis without the use of intravenous contrast. Auto Exposure Controls were utilized during the CT exam to meet ALARA standards for radiation dose reduction. INDICATION: Generalized abdominal pain. COMPARISON: None. FINDINGS: The heart is unremarkable. The lung bases are clear. Bilateral cortical cysts are seen in the kidneys. No hydronephrosis or renal calculi. The urinary bladder is unremarkable. The liver, spleen, pancreas, and adrenal glands have a normal noncontrast CT appearance. The gallbladder surgically absent. There is no pathologically enlarged mesenteric or retroperitoneal adenopathy. The bowel loops are nondilated. The appendix is visualized in the right lower quadrant and has a normal appearance. Diverticuli are seen in the descending and sigmoid colon without evidence of acute diverticulitis. There is no free fluid or free air. No acute osseous abnormalities. There is osseous fusion across the C3 and C4 levels. Scattered calcified aortic and iliac atherosclerotic plaque is seen without aneurysm. There is no free air, loculated collection, or adenopathy in the pelvis. IMPRESSION: 1. No acute abnormalities in the abdomen and pelvis. No bowel obstruction, free fluid, or free air. Normal appendix. 2. Diverticuli in the descending and sigmoid colon without evidence of acute diverticulitis. Dictated by: Dictated on workstation # [id number]
== END ==
LOC: RAD FS 08:29
PROVIDERS: ATTEND Nurse Practitioner Family
DX: K57.30 Diverticulosis of large intestine without perforation or abscess without bleeding (principal)
CPT/HCPCS: 74176

== ENCOUNTER → 2022-11-30 | Outpatient (CLI) | payer MEDICARE ==
[~2022-11-30] MED LIST changes: +DILT120C71 PO; -DILT120C85 PO
--- NOTE | 2022-11-30 11:53 | Diagnostic Imaging Report ---
PROCEDURE: US left lower extremity venous. TECHNIQUE: Multiple real-time grayscale images were obtained over the left lower extremity in various projections. Additional duplex Doppler and color Doppler images were also obtained. INDICATION: Left leg pain and swelling EXAMINATION: Grayscale and color Doppler evaluation of the deep veins of the left lower extremity were performed with waveform analysis. FINDINGS: Continuous venous flow is present. No intraluminal filling defect is identified. There is normal compressibility and response to augmentation. No abnormal perivascular fluid collection is identified. IMPRESSION: No ultrasound evidence of left lower extremity deep venous thrombosis. Dictated by: Dictated on workstation # [id number]
== END ==
LOC: RAD 10:31
PROVIDERS: ATTEND Physician Assistant
DX: M79.662 Pain in left lower leg (principal); M79.89 Other specified soft tissue disorders

== ENCOUNTER 2023-02-08 13:04 | Emergency (ER) | payer MEDICARE ==
[2023-02-08] MEDS ORDERED: NS IV 1000 ML 1,000 ML IV STA (13:39)
--- NOTE | 2023-02-08 13:48 | ED General ---
General Chief Complaint: General Problems/Pain Stated Complaint: DEHYDRATED | WEAKNESS Nursing Triage Note: PT TO FT BY WC WITH C/O NOT EATING WELL, NOT DRINKING WELL AND FEELING SHAKY X3 DAYS. PT SENT HERE BY PCP FOR FLUIDS Source of Information: Patient Exam Limitations: No Limitations (MERLY VALERIO) History of Present Illness Date Seen by Provider: Feb 08, 2023 Time Seen by Provider: 13:47 Initial Comments Patient is a 77-year-old male with a history of coronary artery disease, pacemaker, CKD who presents ED with flulike symptoms. Reports body aches, chills weakness fatigue over the past 3 days. States he feels congestion with a mild cough but denies of any chest pain or shortness of breath. He reports he has been having soreness in his abdomen but no current pain. Denies any vomiting or diarrhea. Patient was seen at his primary care physician and was sent over to ED for further evaluation, concern for dehydration and the worsening weakness. States he has been feeling weak difficulty standing today secondary to the generalized weakness. He had a negative COVID influenza in the office. He denies of any pain with urination, frequent urination, headache, dizziness, visual changes, unilateral weakness or sensory changes, sore throat, dysuria. (MERLY VALERIO) Allergies and Home Medications Allergies Coded Allergies: No Known Drug Allergies (Unverified , 02/26/19) Patient Home Medication List Home Medication List Reviewed: Yes (MERLY VALERIO) ALPRAZolam (Xanax Tablet) 0.25 Mg Tablet, 0.25 MG PO TID, (Reported) Entered as Reported by: YESSENIA GRAY on 02/26/20 0747 Apixaban (Eliquis) 5 Mg Tablet, 5 MG PO BID, (Reported) Entered as Reported by: DEVIN LUCAS on 02/06/21 1450 Atorvastatin Calcium (Atorvastatin Calcium) 40 Mg Tablet, 40 MG PO DAILY, (Reported) Entered as Reported by: YESSENIA GRAY on 02/26/20 0747 Docusate Sodium (Stool Softener) 50 Mg/5 Ml Liquid, 50 MG PO, (Reported) Entered as Reported by: DEVIN LUCAS on 02/06/21 1457 Fish Oil/Dha/Epa (Fish Oil 1,200 mg Fish Oil) 1 Each Capsule, 1 EACH PO, (Reported) Entered as Reported by: DEVIN LUCAS on 02/06/21 145 Fluticasone Propionate (Fluticasone Propionate) 16 Gm [place].susp, 16 GM NSEACH PRN, (Reported) Entered as Reported by: YESSENIA GRAY on 02/26/20746 Glucosa Henson 2Kcl/Chondroitin Henson (Glucosamine & Chondroitin Cap) 1 Each Capsule, 1 EACH PO, (Reported) Entered as Reported by: DEVIN LUCAS on 02/06/21 145 Isosorbide Mononitrate (Isosorbide Mononitrate ER) 30 Mg Tab.er.24h, 30 MG PO DAILY, (Reported) Entered as Reported by: YESSENIA GRAY on 02/26/20746 Lisinopril (Lisinopril) 20 Mg Tablet, 20 MG PO DAILY, (Reported) Entered as Reported by: YESSENIA GRAY on 02/26/20746 Loratadine (Loratadine) 10 Mg Tablet, 10 MG PO DAILY, (Reported) Entered as Reported by: YESSENIA GRAY on 02/26/20746 Metoprolol Succinate (Toprol Xl) 25 Mg Tab.er.24h, 25 MG PO DAILY Prescribed by: AMINATA FOX on 02/07/21 0836 Multivitamin (Multi-Vitamin Daily) 1 Each Tablet, 1 EACH PO, (Reported) Entered as Reported by: DEVIN LUCAS on 02/06/211456 Omeprazole (Omeprazole) 40 Mg Capsule.dr, 40 MG PO DAILY, (Reported) Entered as Reported by: YESSENIA GRAY on 02/26/20746 Ranolazine (Ranolazine ER) 500 Mg Tab.er.12h, 500 MG PO BID, (Reported) Entered as Reported by: YESSENIA GRAY on 02/26/20746 Ranolazine (Ranexa) 500 Mg Tab.er.12h, 500 MG PO, (Reported) Entered as Reported by: DEVIN LUCAS on 02/06/21 145 Vitamin E (Dl,Tocopheryl Acet) (Vitamin E) 90 Mg Capsule, 180 MG PO, (Reported) Entered as Reported by: DEVIN LUCAS on 02/06/211456 Review of Systems Review of Systems Constitutional: No chills EENTM: No ear pain, No blurred vision, No double vision Respiratory: cough; No dyspnea on exertion Cardiovascular: No chest pain Gastrointestinal: No abdominal pain, No diarrhea, No nausea Genitourinary: No decreased output, No discharge Musculoskeletal: No back pain, No joint pain Skin: No change in color (MERLY VALERIO) All Other Systems Reviewed Negative Unless Noted: Yes (MERLY VALERIO) Past Cvfscrn-Whsovl-Zcysca Hx Patient Social History Tobacco Use?: No Use of E-Cig and/or Vaping dev: No Substance use?: No Alcohol Use?: No Pt feels they are or have been: No (MERLY VALERIO) Immunizations Up To Date Tetanus Booster (TDap): Unknown PED Vaccines UTD: Yes First/Initial COVID19 Vaccinat: 08/2020 Second COVID19 Vaccination Randy: 09/2020 Third COVID19 Vaccination Date: 08/2020 (MERLY VALERIO) Past Medical History Surgery/Hospitalization HX: HTN, HLD, GERD BYPASS, PACER CABG, Coronary Stent Respiratory: No Currently Using CPAP: No Currently Using BIPAP: No Chronic Edema/Swelling, Coronary Artery Disease, High Cholesterol, Hypertension Neurological: Yes TIA Reproductive Disorders: No Sexually Transmitted Disease: No HIV/AIDS: No Genitourinary: No Benign Prostatic Hyperpl Gastrointestinal: Yes Pancreatitis Musculoskeletal: Yes Rheumatoid Arthritis Endocrine: No HEENT: No Loss of Vision: Denies Hearing Impairment: Denies Cancer: No Psychosocial: No Integumentary: No (MERLY VALERIO) Physical Exam Vital Signs Vital Signs - First Documented 02/08/23 13:15 Temp 36.9 Pulse 79 Resp 16 B/P (MAP) 128/89 (102) Pulse Ox 97 O2 Delivery Room Air (RODOLFO VASQUEZ MD) Vital Signs Capillary Refill : (MERLY VALERIO) Height, Weight, BMI Height: '" Weight: lbs. oz. kg; 29.00 BMI Method: General Appearance: No Apparent Distress, WD/WN Eyes: Bilateral Eye Normal Inspection, Bilateral Eye PERRL, Bilateral Eye EOMI HEENT: PERRL/EOMI, TMs Normal, Normal ENT Inspection, Pharynx Normal Neck: Full Range of Motion, Normal Inspection, Non Tender, Supple Respiratory: Chest Non Tender, Lungs Clear, Normal Breath Sounds, No Accessory Muscle Use Cardiovascular: Regular Rate, Rhythm, No Edema, No Gallop, No JVD Gastrointestinal: Normal Bowel Sounds, No Organomegaly, Non Tender, Soft Back: Normal Inspection, No CVA Tenderness Extremity: Normal Capillary Refill, Normal Inspection, Normal Range of Motion, Non Tender Neurologic/Psychiatric: Alert, Oriented x3, No Motor/Sensory Deficits, Normal Mood/Affect Skin: Normal Color, Warm/Dry (MERLY VALERIO) Progress/Results/Core Measures Suspected Sepsis SIRS Temperature: Pulse: 79 Respiratory Rate: 16 Laboratory Tests 02/08/23 14:07: White Blood Count 9.7 Blood Pressure 128 /89 Mean: 102 Laboratory Tests 02/08/23 14:07: Creatinine 1.54H, Platelet Count 147, Total Bilirubin 1.3H (MERLY VALERIO) Results/Orders Lab Results Laboratory Tests Test 02/08/23 14:07 02/08/23 14:44 Range/Units White Blood Count 9.7 4.3-11.0 10^3/uL Red Blood Count 5.36 4.30-5.52 10^6/uL Hemoglobin 17.8 H 13.3-17.7 g/dL Hematocrit 51 40-54 % Mean Corpuscular Volume 96 80-99 fL Mean Corpuscular Hemoglobin 33 25-34 pg Mean Corpuscular Hemoglobin Concent 35 32-36 g/dL Red Cell Distribution Width 13.6 10.0-14.5 % Platelet Count 147 130-400 10^3/uL Mean Platelet Volume 9.5 9.0-12.2 fL Immature Granulocyte % (Auto) 1 % Neutrophils (%) (Auto) 78 H 42-75 % Lymphocytes (%) (Auto) 16 12-44 % Monocytes (%) (Auto) 5 0-12 % Eosinophils (%) (Auto) 0 0-10 % Basophils (%) (Auto) 0 0-10 % Neutrophils # (Auto) 7.6 1.8-7.8 10^3/uL Lymphocytes # (Auto) 1.5 1.0-4.0 10^3/uL Monocytes # (Auto) 0.5 0.0-1.0 10^3/uL Eosinophils # (Auto) 0.0 0.0-0.3 10^3/uL Basophils # (Auto) 0.0 0.0-0.1 10^3/uL Immature Granulocyte # (Auto) 0.1 0.0-0.1 10^3/uL Sodium Level 136 135-145 MMOL/L Potassium Level 4.2 3.6-5.0 MMOL/L Chloride Level 106 98-107 MMOL/L Carbon Dioxide Level 20 L 21-32 MMOL/L Anion Gap 10 5-14 MMOL/L Blood Urea Nitrogen 27 H 7-18 MG/DL Creatinine 1.54 H 0.60-1.30 MG/DL Estimat Glomerular Filtration Rate 46 BUN/Creatinine Ratio 18 Glucose Level 80 70-105 MG/DL Calcium Level 9.2 8.5-10.1 MG/DL Corrected Calcium 9.4 8.5-10.1 MG/DL Magnesium Level 2.0 1.6-2.4 MG/DL Total Bilirubin 1.3 H 0.1-1.0 MG/DL Aspartate Amino Transf (AST/SGOT) 28 5-34 U/L Alanine Aminotransferase (ALT/SGPT) 45 0-55 U/L Alkaline Phosphatase 93 40-136 U/L Total Protein 6.7 6.4-8.2 GM/DL Albumin 3.8 3.2-4.5 GM/DL Lipase 104 H 8-78 U/L Urine Color ORANGE Urine Clarity CLEAR Urine pH 6.0 5-9 Urine Specific [place] >=1.030 1.016-1.022 Urine Protein 2+ H NEGATIVE Urine Glucose (UA) NEGATIVE NEGATIVE Urine Ketones 2+ H NEGATIVE Urine Nitrite NEGATIVE NEGATIVE Urine Bilirubin 1+ H NEGATIVE Urine Urobilinogen 1.0 < = 1.0 MG/DL Urine Leukocyte Esterase NEGATIVE NEGATIVE Urine RBC (Auto) 1+ H NEGATIVE Urine RBC 5-10 H /HPF Urine WBC 0-2 /HPF Urine Squamous Epithelial Cells 2-5 /HPF Urine Crystals NONE /LPF Urine Bacteria TRACE /HPF Urine Casts NONE /LPF Urine Mucus MODERATE H /LPF Urine Culture Indicated NO (RODOLFO VASQUEZ MD) Medications Given in ED Current Medications Medications Dose Ordered Sig/Terrance Route Start Time Stop Time Status Last Admin Dose Admin Iohexol 100 ml ONCE ONCE IV 02/08/23 14:45 02/08/23 14:46 DC 02/08/23 15:14 80 ML Sodium Chloride 100 ml ONCE ONCE IV 02/08/23 14:45 02/08/23 14:46 DC 02/08/23 15:15 80 ML (RODOLFO VASQUEZ MD) Vital Signs/I&O 02/08/23 02/08/23 13:15 16:19 Temp 36.9 Pulse 79 81 Resp 16 16 B/P (MAP) 128/89 (102) 163/89 Pulse Ox 97 95 O2 Delivery Room Air Room Air (RODOLFO VASQUEZ MD) Vital Signs/I&O Capillary Refill : (MERLY VALERIO) Blood Pressure Mean: 102 Departure Communication (PCP) Patient with a history of coronary artery disease, chronic kidney disease, pacemaker who presents to ED flulike symptoms. Symptoms over the past 3 days. Body aches, chills nasal congestion mild cough and generalized weakness. Difficulty getting up and ambulating today. Not eating or drinking as much. Denies of any chest pain or shortness of breath. Reports a mild cough with the congestion. Urinating without difficulties. GCS of 15. Alert and orient x4. Vital signs remained stable. Patient Was sent over from his primary care physician for concern for dehydration and further work-up. Had a negative COVID influenza in the office. CBC, CMP, lipase, chest x-ray, urinalysis and was ordered. CBC grossly unremarkable. Chemistry showed BUN of 27, creatinine 1.54, GFR 46 which is stable chronic kidney disease. Lipase was 104 which is nonspecific no specific upper abdominal tenderness.. Chest x-ray was negative for pneumonia, pneumothorax. He states he did have some generalized soreness in his abdomen. No specific tenderness. CT abdomen and pelvis was ordered because of his complaint which did not note any acute abnormality. Urinalysis without evidence of infection but did note bilirubin, ketones, protein and red blood cells. Could be related to dehydration versus his chronic kidney disease. CT abdomen pelvis was negative for nephrolithiasis. Patient received a liter of fluid. Patient Was able to ambulate with his cane and did not feel as weak. Patient has no neurological red flag findings suggesting emergent imaging of the head. This appears more viral at this time. At this time patient is hemodynamically stable. Patient feels comfortable to go home. Continue with hydration. Continue monitoring symptoms. Rest at home. If any worsening symptoms return back to ED for further evaluation. Patient and agree with plan of action. Follow-up with your PCP in 2 to 3 days for reevaluation (MERLY VALERIO) Impression Primary Impression: Weakness Disposition: 01 HOME, SELF-CARE Condition: Stable Departure-Patient Inst. Decision time for Depature: 15:40 (MERLY VALERIO) Referrals: KRISTEN ROUSE (PCP/Family) Primary Care Physician Patient Instructions: Weakness ED Add. Discharge Instructions: Recommend staying hydrated. If any worsening weakness or symptoms to return back to ED. Follow-up your PCP in a few days for reevaluation. All discharge instructions reviewed with patient and/or family. Voiced pilaran marlene. ATTENDING PHYSICIAN NOTE: I was physically present as attending physician in the emergency department during the care of this patient, but I was not directly involved in the decision making or delivery of care for this patient. (RODOLFO VASQUEZ MD) MERLY VALERIO Feb 08, 2023 13:47 RODOLFO VASQUEZ MD Feb 08, 2023 19:54
[2023-02-08 14:12] LABS: BASOPHILS % (AUTO) 0 % (0-10); EOSINOPHILS % (AUTO) 0 % (0-10); HEMATOCRIT 51 % (40-54); HEMOGLOBIN 17.8 g/dL (13.3-17.7); LYMPHOCYTES # (AUTO) 1.5 10^3/uL (1.0-4.0); LYMPHOCYTES % (AUTO) 16 % (12-44); MEAN CORPUSCULAR HEMOGLOBIN 33 pg (25-34); MEAN CORPUSCULAR HGB CONC 35 g/dL (32-36); MEAN CORPUSCULAR VOLUME 96 fL (80-99); MEAN PLATELET VOLUME 9.5 fL (9.0-12.2); MONOCYTES # (AUTO) 0.5 10^3/uL (0.0-1.0); MONOCYTES % (AUTO) 5 % (0-12); NEUTROPHILS # (AUTO) 7.6 10^3/uL (1.8-7.8); NEUTROPHILS % (AUTO) 78 % (42-75); PLATELET COUNT 147 10^3/uL (130-400); WHITE BLOOD COUNT 9.7 10^3/uL (4.3-11.0)
[2023-02-08 14:31] LABS: ALBUMIN 3.8 GM/DL (3.2-4.5); BILIRUBIN,TOTAL 1.3 MG/DL (0.1-1.0); CALCIUM 9.2 MG/DL (8.5-10.1); CREATININE SERUM 1.54 MG/DL (0.60-1.30); POTASSIUM 4.2 MMOL/L (3.6-5.0); TOTAL PROTEIN 6.7 GM/DL (6.4-8.2)
[2023-02-08] MEDS ORDERED: NS 100 ML (IVPB) BAG IV ONE (14:45)
[2023-02-08] MEDS ORDERED: IOHEXOL 350 MG/ML 100 ML (OMNIPAQUE 350) VIAL IV ONE (14:45)
[2023-02-08 15:13] LABS: BACTERIA,URINE TRACE /HPF; BILIRUBIN,URINE 1+ (NEGATIVE); CLARITY,URINE CLEAR; COLOR,URINE ORANGE; GLUCOSE, URINE (UA) NEGATIVE (NEGATIVE); KETONES,URINE 2+ (NEGATIVE); LEUKOCYTE ESTERASE ,URINE NEGATIVE (NEGATIVE); NITRITE,URINE NEGATIVE (NEGATIVE); PROTEIN,URINE 2+ (NEGATIVE); WBC,URINE 0-2 /HPF
--- NOTE | 2023-02-08 15:32 | Diagnostic Imaging Report ---
PROCEDURE: CT abdomen and pelvis with contrast. TECHNIQUE: Multiple contiguous axial images were obtained through the abdomen and pelvis after administration of intravenous contrast. Auto Exposure Controls were utilized during the CT exam to meet ALARA standards for radiation dose reduction. All CT scans use one or more of the following dose optimizing techniques: Automated exposure control, MA and/or KvP adjustment based on patient size and exam type or iterative reconstruction. INDICATION: Left lower quadrant abdominal pain with decreased appetite. COMPARISON: 08/01/2022. FINDINGS: There has been an increase in linear atelectasis in the lung bases. Gallbladder is surgically absent. No focal hepatic or splenic abnormality is identified. No pancreatic or adrenal gland lesion is seen. There are several bilateral renal cortical cysts. Mild aortoiliac atherosclerotic calcification is noted. There is no evidence of free fluid within the abdomen or pelvis. Numerous sigmoid diverticula are again identified with probable smooth muscle hyperplasia. No pericolonic edema or inflammation is identified. There is no evidence of perforation or abscess in the abdomen or pelvis. There is no evidence of focal inflammation or organized fluid collection. The appendix has a normal appearance. There is moderate lumbar spondylosis with loss of L3-L4 disc space. IMPRESSION: No definite acute abnormality or adverse change apart from increased basilar atelectasis. There is significant sigmoid diverticular disease and smooth muscle hyperplasia; however, no active inflammation is seen to indicate acute diverticulitis. Dictated by: Dictated on workstation # [id number]
[2023-02-08 16:19] VITALS: BP 163/89
--- NOTE | 2023-02-13 09:05 | Diagnostic Imaging Report ---
PATIENT HISTORY: cough. TECHNIQUE: Single frontal view of the chest. COMPARISON: 04/05/2021 FINDINGS: The lung volumes are normal. No focal consolidation is seen. No large pleural effusion or pneumothorax is seen. The cardiomediastinal silhouette is normal in size and contour. No acute osseous abnormality is seen. Left-sided pacemaker leads are stable. Sternotomy wires and post-CABG changes are noted. IMPRESSION: No acute pulmonary abnormality seen. Dictated by: Dictated on workstation # [id number]
== END 2023-02-08 16:19 | disposition home or self-care (01) ==
LOC: EDUNIT# 13:04 → ER 13:05
DX: R53.1 Weakness (principal); I12.9 Hypertensive chronic kidney disease with stage 1 through stage 4 chronic kidney disease, or unspecified chronic kidney disease; N18.9 Chronic kidney disease, unspecified; Z20.822 Contact with and (suspected) exposure to COVID-19; Z95.0 Presence of cardiac pacemaker; Z86.79 Personal history of other diseases of the circulatory system
CPT/HCPCS: 36415; 71045; 74177; 80053; 81000; 83690; 83735; 85025

== ENCOUNTER 2023-02-20 07:31 | Outpatient (CLI) | payer MEDICARE | END 2023-02-20 07:55 | LOC: SLEEP 07:31 | PROVIDERS: ATTEND Nurse Practitioner | DX: G47.33 Obstructive sleep apnea (adult) (pediatric) (principal); G47.36 Sleep related hypoventilation in conditions classified elsewhere; R06.83 Snoring; G47.10 Hypersomnia, unspecified; G47.61 Periodic limb movement disorder | CPT/HCPCS: G0399 ==

== ENCOUNTER → 2023-03-13 | Outpatient (CLI) | payer MEDICARE ==
[2023-03-13 16:11] LABS: ABSOLUTE RETIC # 80 10e9/uL (24-90); BASOPHILS % (AUTO) 0 % (0-10); EOSINOPHILS # (AUTO) 0.2 10^3/uL (0.0-0.3); EOSINOPHILS % (AUTO) 3 % (0-10); HEMATOCRIT 37 % (40-54); HEMOGLOBIN 12.2 g/dL (13.3-17.7); LYMPHOCYTES # (AUTO) 1.3 10^3/uL (1.0-4.0); LYMPHOCYTES % (AUTO) 22 % (12-44); MEAN CORPUSCULAR HEMOGLOBIN 33 pg (25-34); MEAN CORPUSCULAR HGB CONC 33 g/dL (32-36); MEAN CORPUSCULAR VOLUME 100 fL (80-99); MONOCYTES # (AUTO) 0.5 10^3/uL (0.0-1.0); MONOCYTES % (AUTO) 8 % (0-12); NEUTROPHILS # (AUTO) 3.8 10^3/uL (1.8-7.8); NEUTROPHILS % (AUTO) 67 % (42-75); PLATELET COUNT 135 10^3/uL (130-400); WHITE BLOOD COUNT 5.7 10^3/uL (4.3-11.0)
[2023-03-13 16:39] LABS: EOSINOPHILS % (MANUAL) 3 %; LYMPHOCYTES % (MANUAL) 13 %; MONOCYTES % (MANUAL) 13 %; NEUTROPHILS % (MANUAL) 61 %; RBC MORPH NORMAL; REACTIVE LYMPHOCYTES 10 %
== END ==
LOC: LABNPT 16:03
PROVIDERS: ATTEND Physician Assistant
DX: M48.062 Spinal stenosis, lumbar region with neurogenic claudication (principal); M54.41 Lumbago with sciatica, right side; M54.42 Lumbago with sciatica, left side; G89.29 Other chronic pain
CPT/HCPCS: 85007; 85027; 85045; 85055

== ENCOUNTER 2023-04-07 19:23 | Outpatient (CLI) | payer MEDICARE | END 2023-04-08 06:21 | LOC: SLEEP 19:23 | PROVIDERS: ATTEND Physician Assistant | DX: G47.33 Obstructive sleep apnea (adult) (pediatric) (principal); G47.61 Periodic limb movement disorder; R06.83 Snoring; I25.9 Chronic ischemic heart disease, unspecified; I10 Essential (primary) hypertension ==

== ENCOUNTER → 2023-04-12 | Outpatient (CLI) | payer MEDICARE ==
--- NOTE | 2023-04-12 13:40 | Diagnostic Imaging Report ---
INDICATION: Pre-MRI screening. Time of Exam: 1:25 PM Correlation is made with prior chest from 02/08/2023. Changes of median sternotomy are noted. There is a dual lead left-sided cardiac pacemaker. No abandoned leads are identified. The lungs are clear. The pulmonary vascularity is normal. No effusion or pneumothorax is detected. IMPRESSION: No evidence of abandoned leads to preclude performance of an MRI. Dictated by: Dictated on workstation # [id number]
--- NOTE | 2023-04-12 17:58 | Diagnostic Imaging Report ---
PROCEDURE: MR imaging cervical spine without contrast. TECHNIQUE: Multiplanar, multisequence MR imaging of the cervical spine was performed without contrast. INDICATION: Neck pain. FINDINGS: There is straightening of the normal cervical lordosis. The vertebral body heights are well maintained. The prevertebral soft tissues are within normal limits. Posterior fossa is unremarkable. Visualized portions of the spinal cord are normal signal intensity and morphology. At C2-C3 there is no spinal stenosis. There is some uncovertebral joint hypertrophy with mild neural foraminal encroachment. At C3-C4 there is annular bulging and right uncovertebral joint hypertrophy. There is mild to moderate spinal stenosis and moderate right neural foraminal encroachment. At C4-C5 there is annular bulging and bilateral uncovertebral hypertrophy. There is moderate spinal stenosis and moderate to severe bilateral neural foraminal encroachment. This is exacerbated by some posterior facet arthropathy. At C5-C6 there is annular bulging and bilateral uncovertebral hypertrophy. There is a moderate spinal stenosis. There is moderate right and mild left neural foraminal encroachment. At C6-C7 there is annular bulging and bilateral uncovertebral hypertrophy left greater than right. Moderate spinal stenosis. There is moderate severe left and moderate right neural foraminal encroachment. At C7-T1 there is no spinal or neural foraminal encroachment. IMPRESSION: Moderate cervical spondylosis and multilevel degenerative disc disease as described above Dictated by: Dictated on workstation # [id number]
--- NOTE | 2023-04-12 18:03 | Diagnostic Imaging Report ---
PROCEDURE: MRI lumbar spine. TECHNIQUE: Multiplanar, multisequence MRI of the lumbar spine was performed without contrast. INDICATION: Back pain. COMPARED: 01/17/2021. FINDINGS: Chronic area of vertebral body fusion at the L3-L4 level stable. L2 on L3 retrolisthesis and L4 on L5 anterolisthesis grade 1 unchanged in magnitude. There are fatty Modic type II degenerative changes across the L2-L3 and L5-S1 opposing endplates chronic, lower thoracic cord and conus unremarkable. No paravertebral mass, hemorrhage or acute fluid collection is found. L1-L2: Mild degenerative changes to the discs, endplates and facets at this level stable and result in no stenosis. L2-L3: There is facet arthrosis, thickened ligamenta flava, disc desiccation, disc bulge and endplate osteophytes resulting in mild to moderate right and moderate to severe left neural foraminal narrowing with mild to moderate canal stenosis. L3-L4: Facet arthrosis, ligament thickening and endplate osteophytes result in mild to moderate canal stenosis with mild right greater than left lateral recess stenosis. There is moderate to severe right and moderate left foraminal narrowing. L4-L5: Bulky facet arthrosis and thickened ligamenta flava, disc bulge and endplate osteophytes result in severe canal stenosis and right greater than left lateral recess stenosis. There is a moderate to severe left and severe right neural foraminal narrowing L5-S1: Endplate osteophytes indent the ventral epidural fat, there is bulky facet arthrosis and thickened ligamenta flava. There is a mild left and moderate right lateral recess stenosis and moderate to severe biforaminal narrowing IMPRESSION: 1. Substantial degrees of multilevel canal, foraminal and recess stenosis are not significantly changed from prior with stable multilevel grade 1 listhesis, endplate Modic changes and vertebral body ankylosis with no acute-appearing osseous pathology. Dictated by: Dictated on workstation # [id number]
== END ==
LOC: RAD 14:00
PROVIDERS: ATTEND Physician Assistant
DX: M47.812 Spondylosis without myelopathy or radiculopathy, cervical region (principal); M50.31 Other cervical disc degeneration, high cervical region; M50.321 Other cervical disc degeneration at C4-C5 level; M50.322 Other cervical disc degeneration at C5-C6 level; M50.323 Other cervical disc degeneration at C6-C7 level; M48.061 Spinal stenosis, lumbar region without neurogenic claudication; M43.16 Spondylolisthesis, lumbar region; M43.26 Fusion of spine, lumbar region
CPT/HCPCS: 71045; 72141; 72148